=== PATIENT | female | born 1955 | race Caucasian/White ===

== ENCOUNTER → 2017-07-06 | Outpatient (CLI) | payer OTHER ==
[~2017-07-06] MED LIST: ALL100 PO; AMR2 PO; ASPI81TA28 PO; LISI-461 PO; LPT40 PO; METF-384 PO; WLLSR150 PO
== END | disposition home or self-care (01) ==
LOC: C.LABPVFM 11:14
PROVIDERS: ATTEND Nurse Practitioner Family
DX: E11.9 Type 2 diabetes mellitus without complications (principal)

== ENCOUNTER → 2017-07-21 | Outpatient (CLI) | payer OTHER ==
[2017-07-21 13:23] LABS: BLOOD UREA NITROGEN 14 mg/dl (7-18); CALCIUM 9.5 mg/dl (8.5-10.1); CARBON DIOXIDE 26 mmol/L (21-32); CHLORIDE 109 mmol/L (98-107); GLUCOSE 136 mg/dl (70-99); POTASSIUM 4.2 mmol/L (3.5-5.1); SODIUM 142 mmol/L (136-145)
== END | disposition home or self-care (01) ==
LOC: C.LABPVFM 09:26
PROVIDERS: ATTEND Nurse Practitioner Family
DX: E11.9 Type 2 diabetes mellitus without complications (principal)

== ENCOUNTER → 2017-10-20 | Outpatient (CLI) | payer OTHER ==
[2017-10-20 13:15] LABS: HEMOGLOBIN A1C 6.8 % (4.5-5.6)
== END | disposition home or self-care (01) ==
LOC: C.LABPVFM 07:55
PROVIDERS: ATTEND Nurse Practitioner Family
DX: E11.9 Type 2 diabetes mellitus without complications (principal)

== ENCOUNTER → 2018-02-09 | Outpatient (CLI) | payer OTHER ==
[2018-02-09 13:43] LABS: BLOOD UREA NITROGEN 27 mg/dl (7-18); CALCIUM 9.9 mg/dl (8.5-10.1); CARBON DIOXIDE 26 mmol/L (21-32); CREATININE 1.23 mg/dl (0.60-1.20); GLUCOSE 121 mg/dl (70-99); POTASSIUM 4.7 mmol/L (3.5-5.1); SODIUM 139 mmol/L (136-145)
[2018-02-09 13:53] LABS: HEMOGLOBIN A1C 6.5 % (4.5-5.6)
== END | disposition home or self-care (01) ==
LOC: C.LABPVFM 10:20
PROVIDERS: ATTEND Nurse Practitioner Family
DX: E11.9 Type 2 diabetes mellitus without complications (principal); I10 Essential (primary) hypertension

== ENCOUNTER 2020-07-04 16:35 | Inpatient (IN) ==
[2020-07-04] MEDS ORDERED: OPTIRAY 320 125ml IV ONE (17:22)
--- NOTE | 2020-07-04 17:22 | Emergency Department Note ---
History of Present Illness General Chief complaint: Confusion Stated complaint: CONFUSION Time Seen by Provider: 07/04/20 17:04 Source: patient and family (Daughter who is at the bed) Mode of arrival: ambulatory Limitations: no limitations History of Present Illness This patient is brought in by her daughter after she has been confused. The patient had talked to her mother yesterday and apparently was fine. She called the daughter today at 228 and was confused and did not remember stuff she called her back and did not remember calling her the first time. This is all new for her. She is had no fall or trauma. No recent illness. No headache or neck pain or stiffness. No exposure to COVID or COVID-like symptoms. No fever or ch ills or cough. She is not on any blood thinner she is had no change in vision. No numbness or weakness she has been anxious and teary-eyed because of this. She lives alone. No slurred speech at any point. She is a type II diabetic but does not have a glucometer. The daughter gave her sugar at home with no change Home Medications Home Medications Medication Instructions Recorded Confirmed Type aspirin [Aspir-81] 81 mg PO QAM 07/17/18 07/04/20 History docusate sodium [Stool Softener] 100 mg PO DIRECTED 07/17/18 07/04/20 History potassium 99 mg PO QAM 07/17/18 07/04/20 History blood sugar diagnostic #10 ea 05/17/19 12/03/19 Rx lancets 30 gauge #25 ea 05/17/19 12/03/19 Rx fluticasone propionate 50 2 sprays INTNAS DAILY PRN gm 09/18/19 07/04/20 History mcg/actuation nasal spray,suspension dulaglutide 1.5 mg/0.5 mL 1.5 mg SUBCUT WEEKLY #2 ml 03/07/20 07/04/20 Rx subcutaneous pen injector lisinopril 10 mg tablet 10 mg PO DAILY #90 tab 04/28/20 07/04/20 Rx sertraline 50 mg tablet See Rx Instructions .ROUTE 05/27/20 07/04/20 Rx .COMPLEX #90 tab Adult Fiber Gummies 0 mg PO DAILY 07/04/20 07/04/20 History Hylands 1 tab PO DAILY PRN 07/04/20 07/04/20 History allopurinol [Zyloprim] 100 mg PO BID 07/04/20 07/04/20 History atorvastatin [Lipitor] 80 mg PO DAILY 07/04/20 07/04/20 History biotin 0 mg PO DAILY 07/04/20 07/04/20 History cholecalciferol (vitamin D3) 50,000 units PO WK 07/04/20 07/04/20 History fexofenadine [Alicia] 180 mg PO DAILY PRN 07/04/20 07/04/20 History metformin [Glucophage] 1,000 mg PO BID 07/04/20 07/04/20 History omega-3 fatty acids-vitamin E 1 cap PO DAILY 07/04/20 07/04/20 History [Fish Oil] Allergies Allergy/AdvReac Type Severity Reaction Status Date / Time No Known Allergies Allergy Verified 07/04/20 18:51 Past Med/Surg History Medical History Chronic kidney disease Diabetes Non insulin dep HTN (hypertension) RIGHT Hyperlipidemia Surgical History History of section EMERGENCY History of colonoscopy History of total hip arthroplasty Status post trigger finger release THUMB Family History Other Cancer Diabetes Heart disease Hypertension Social History Smoking Status: Former smoker Cigarettes Per Day: QUIT 11 YEARS AGO; Second Hand Exposure: No; Hx Alcohol Use: Yes Alcohol type: other Hx Substance Use: No Preferred Language: Turkish Communication Ability: Effective Batch Attendant Required: No Beliefs That Will Affect Care: None marital status: / Current Living Situation: Alone current occupational status: employed Other Information That Helps Us Care for You: No Feels Safe at Home: Yes Safety Concerns: Feels Safe At This Time Assistive Devices: Glasses Review of Systems A total of 10 systems reviewed and were otherwise negative Physical Exam Vital Signs Vital Signs - 24 hr 07/04/20 16:54 07/04/20 17:43 07/04/20 17:48 Temperature 36.7 C Temperature Source Oral Pulse Rate 69 63 64 Pulse Rate from SpO2 Sensor 62 Pulse Rhythm Regular Pulse Strength Normal Respiratory Rate 20 24 16 Respiratory Effort / Characteristics Non-Labored Spontaneous Respiratory Depth Normal Respiratory Pattern Regular Blood Pressure 164/88 H 148/76 H 140/75 Blood Pressure Mean 113 80 91 Blood Pressure Position Sitting Pulse Oximetry 97 98 Oxygen Delivery Method Room Air Room Air Sepsis Recent Fever Within 48 Hours No Sepsis New/Unexplained Change in Mental Status No Sepsis Action Taken by Nursing No Action Required 07/04/20 18:00 07/04/20 18:30 07/04/20 19:00 Temperature Temperature Source Pulse Rate 64 61 53 L Pulse Rate from SpO2 Sensor Pulse Rhythm Pulse Strength Respiratory Rate 25 H 21 16 Respiratory Effort / Characteristics Respiratory Depth Respiratory Pattern Blood Pressure 146/84 H 145/82 H 139/70 Blood Pressure Mean 91 106 94 Blood Pressure Position Pulse Oximetry Oxygen Delivery Method Sepsis Recent Fever Within 48 Hours Sepsis New/Unexplained Change in Mental Status Sepsis Action Taken by Nursing 07/04/20 19:30 07/04/20 20:01 07/04/20 21:00 Temperature Temperature Source Pulse Rate 59 L 55 L 56 L Pulse Rate from SpO2 Sensor 55 L 57 L Pulse Rhythm Pulse Strength Respiratory Rate 21 22 14 Respiratory Effort / Characteristics Respiratory Depth Respiratory Pattern Blood Pressure 140/81 148/73 H 135/68 Blood Pressure Mean 117 99 79 Blood Pressure Position Pulse Oximetry 96 97 93 Oxygen Delivery Method Room Air Room Air Room Air Sepsis Recent Fever Within 48 Hours Sepsis New/Unexplained Change in Mental Status Sepsis Action Taken by Nursing 07/04/20 21:30 Temperature Temperature Source Pulse Rate 60 Pulse Rate from SpO2 Sensor 58 L Pulse Rhythm Pulse Strength Respiratory Rate 23 Respiratory Effort / Characteristics Respiratory Depth Respiratory Pattern Blood Pressure 130/51 L Blood Pressure Mean 85 Blood Pressure Position Pulse Oximetry 96 Oxygen Delivery Method Room Air Sepsis Recent Fever Within 48 Hours Sepsis New/Unexplained Change in Mental Status Sepsis Action Taken by Nursing General: Well developed well nourished teary-eyed older female who otherwise in no acute distress, breathing comfortably on room air. Normal speech. She is krissy rt to person and place but not date. HEENT: Normal cephalic atraumatic. Pupils are equal round and reactive to light. Extraocular movements are intact. Oropharynx is pink with moist mucous membranes. No swelling of the mouth lips or tongue. Neck: Supple with a midline trachea. No meningeal signs or stiffness, no JVD or bruits. No Stridor. Chest: Clear to auscultation bilaterally. No wheezes or rhonchi. No increased work of breathing. Heart: Regular rate and rhythm without murmurs or gallops. Abdomen: Soft nontender, nondistended without rebound guarding or rigidity. Extremities: No cyanosis clubbing or edema. No calf tenderness or assymetry Spine/Back. Non tender to palpation. No CVA tenderness Skin: Good turgor without rashes. Neurologic exam: Cranial nerves two through 12 are intact. Motor and sensation are intact and symmetrical throughout. No tremor. No pronator drift. Course Administered Medications Docusate Sodium (Docusate Sodium 100 Mg Cap) 100 mg PO DAILY RADHA Stop: 08/03/20 22:41 Last Admin: 07/04/20 23:04 Dose: 100 mg Documented by: [id number] Sodium Chloride (2 Nss) 1,000 mls @ 80 mls/hr IV .[id number] ONE Stop: 07/05/20 11:11 Last Admin: 07/04/20 22:53 Dose: 80 mls/hr Documented by: [id number] Magnesium Sulfate/Dextrose (Magnesium Sulfate / D5w) 1 gm in 100 mls @ 50 mls/hr IV Q2H RADHA Stop: 07/05/20 02:59 Last Admin: 07/05/20 00:52 Dose: 50 mls/hr Documented by: [id number] Infusion: 07/05/20 00:52 Dose: 50 mls/hr Documented by: [id number] Admin: 07/04/20 23:01 Dose: 50 mls/hr Documented by: [id number] Insulin Aspart (Insulin Aspart 100 Units/Ml 3 Ml Pen) 0 units SC ACHS RADHA Stop: 08/03/20 22:41 Last Admin: 07/04/20 23:28 Dose: Not Given Documented by: [id number] Cosigned by: [id number] Discontinued Medications Aspirin (Aspirin 81 Mg Chew) 324 mg PO NOW STA Stop: 07/04/20 18:21 Last Admin: 07/04/20 18:31 Dose: 324 mg Documented by: [id number] Magnesium Sulfate/Dextrose (Magnesium Sulfate / D5w) 1 gm in 100 mls @ 100 mls/hr IV NOW STA Stop: 07/04/20 19:18 Last Infusion: 07/04/20 19:34 Dose: 0 mls/hr Documented by: [id number] Admin: 07/04/20 18:31 Dose: 100 mls/hr Documented by: [id number] Sodium Chloride (1/2 Nss) 1,000 mls @ 500 mls/hr IV .Q2H ONE Stop: 07/04/20 21:49 Last Infusion: 07/04/20 22:43 Dose: 0 mls/hr Documented by: [id number] Admin: 07/04/20 21:17 Dose: 500 mls/hr Documented by: [id number] Ceftriaxone Sodium (Rocephin) 1,000 mg in 50 mls @ 100 mls/hr IV NOW STA Stop: 07/04/20 20:39 Last Infusion: 07/04/20 21:17 Dose: 0 mls/hr Documented by: [id number] Admin: 07/04/20 20:36 Dose: 100 mls/hr Documented by: [id number] Ioversol (Optiray 320 125ml) 119 ml IV ONCE ONE Stop: 07/04/20 17:23 Last Admin: 07/04/20 17:22 Dose: 119 ml Documented by: [id number] Ketorolac Tromethamine (Ketorolac Tromethamine 15 Mg/Ml Vial) 15 mg IV NOW ONE Stop: 07/04/20 19:28 Last Admin: 07/04/20 19:31 Dose: 15 mg Documented by: [id number] Ketorolac Tromethamine (Ketorolac Tromethamine 15 Mg/Ml Vial) 15 mg IV NOW ONE Stop: 07/04/20 20:11 Last Admin: 07/04/20 22:32 Dose: Not Given Documented by: [id number] Critical Care Time Critical Care Time: Yes Total Critical Care Time: 35 Due to the patient's altered mental status, need to call a stroke alert concern for time-limited treatment potentially frequent reassessment and evaluation as well as multiple testing and consultation, I have personally spent greater than 35 minutes of critical care time in the direct management of this patient. This includes bedside care, interpretation of diagnostic studies, and testing, discussion with consultants, patient, and family members, and other required patient management activities. This 35 minutes is in excess of all separately billable procedures. Medical Decision Making Differential Diagnosis TIA, CVA, intracranial hemorrhage, electrolyte or metabolic abnormality, transient global amnesia, infection, cardiac disease, medication side effect Medical Records Attestation: I reviewed the patient's medical records. Home Medications Current Medication List: was personally reviewed by ga Laboratory Data Attestation: I reviewed the patient's lab results. Result diagrams: 07/05/20 00:22 07/04/20 17:27 Lab Results 07/04/20 07/04/20 07/04/20 Range/Units 17:22 17: 17:27 WBC 8.32 (4.8-10.8) K/uL RBC 4.01 L (4.2-5.4) M/uL Hgb 11.9 L (12.0-16.0) g/dL Hct 35.6 L (37-47) % MCV 88.8 (80-100) fL MCH 29.7 (25-34) pg MCHC 33.4 (32-36) g/dL RDW Std Deviation 47.1 H (36.4-46.3) fL RDW Coeff of Pamela 14.4 (11.5-14.5) % Plt Count 241 (130-400) K/uL MPV 9.2 (7.4-10.4) fL Immature Gran % (Auto) 0.2 % Neut % (Auto) 52.9 % Lymph % (Auto) 38.2 % Towns % (Auto) 5.8 % Eos % (Auto) 2.5 % Baso % (Auto) 0.4 % Neut # (Auto) 4.40 (1.4-6.5) K/uL Lymph # (Auto) 3.18 (1.2-3.4) K/uL Towns # (Auto) 0.48 (0.11-0.59) K/uL Eos # (Auto) 0.21 (0-0.5) K/uL Baso # (Auto) 0.03 (0-0.2) K/uL Immature Gran # (Auto) 0.02 (0.00-0.02) K/uL PT 11.0 (9.0-12.0) Seconds INR 1.0 (0.9-1.1) APTT 28.8 (21.0-31.0) Seconds PTT Ratio 1.0 Sodium (136-145) mmol/L Potassium (3.5-5.1) mmol/L Chloride (98-107) mmol/L Carbon Dioxide (21-32) mmol/L Anion Gap (3-11) BUN (7-18) mg/dl Creatinine (0.6-1.2) mg/dl Est Cr Clr Drug Dosing ml/min Est GFR ( Amer) Est GFR (Non-Af Amer) BUN/Creatinine Ratio (10-20) Glucose (70-99) mg/dl POC Glucose 110 H (70-99) mg/dl Calcium (8.5-10.1) mg/dl Magnesium (1.8-2.4) mg/dl Total Bilirubin (0.2-1) mg/dl AST (15-37) U/L ALT (12-78) U/L Alkaline Phosphatase (45-117) U/L Troponin I (0-0.045) ng/ml Total Protein (6.4-8.2) gm/dl Albumin (3.4-5.0) gm/dl Globulin (2.5-4.0) gm/dl Albumin/Globulin Ratio (0.9-2) Lipase (73-393) U/L TSH (0.300-4.500) uIu/ml Urine Color Urine Appearance (Clear) Urine pH (4.5-7.5) Ur Specific [place] (1.000-1.030) Urine Protein (Negative) Urine Glucose (UA) (Negative) Urine Ketones (Negative) Urine Blood (Negative) Urine Nitrite (Negative) Urine Bilirubin (Negative) Urine Urobilinogen (Negative) Ur Leukocyte Esterase (Negative) Urine WBC (Auto) (0-5) /hpf Urine RBC (Auto) (0-4) /hpf U Hyaline Cast (Auto) (0-5) /lpf U Epithel Cells (Auto) (0-5) /lpf Urine Bacteria (Auto) (Negative) COVID-19 Eval Order COVID-19 PCR (Negative) 07/04/20 07/04/20 07/04/20 Range/Units 17:27 17:50 20:42 WBC (4.8-10.8) K/uL RBC (4.2-5.4) M/uL Hgb (12.0-16.0) g/dL Hct (37-47) % MCV (80-100) fL MCH (25-34) pg MCHC (32-36) g/dL RDW Std Deviation (36.4-46.3) fL RDW Coeff of Pamela (11.5-14.5) % Plt Count (130-400) K/uL MPV (7.4-10.4) fL Immature Gran % (Auto) % Neut % (Auto) % Lymph % (Auto) % Towns % (Auto) % Eos % (Auto) % Baso % (Auto) % Neut # (Auto) (1.4-6.5) K/uL Lymph # (Auto) (1.2-3.4) K/uL Towns # (Auto) (0.11-0.59) K/uL Eos # (Auto) (0-0.5) K/uL Baso # (Auto) (0-0.2) K/uL Immature Gran # (Auto) (0.00-0.02) K/uL PT (9.0-12.0) Seconds INR (0.9-1.1) APTT (21.0-31.0) Seconds PTT Ratio Sodium 144 (136-145) mmol/L Potassium 4.1 (3.5-5.1) mmol/L Chloride 113 H (98-107) mmol/L Carbon Dioxide 23 (21-32) mmol/L Anion Gap 8.0 (3-11) BUN 15 (7-18) mg/dl Creatinine 1.12 (0.6-1.2) mg/dl Est Cr Clr Drug Dosing 55.4 ml/min Est GFR ( Amer) 61.0 Est GFR (Non-Af Amer) 52.6 BUN/Creatinine Ratio 13.3 (10-20) Glucose 100 H (70-99) mg/dl POC Glucose (70-99) mg/dl Calcium 9.5 (8.5-10.1) mg/dl Magnesium 1.3 L (1.8-2.4) mg/dl Total Bilirubin 0.4 (0.2-1) mg/dl AST 28 (15-37) U/L ALT 33 (12-78) U/L Alkaline Phosphatase 96 (45-117) U/L Troponin I < 0.015 (0-0.045) ng/ml Total Protein 7.8 (6.4-8.2) gm/dl Albumin 3.7 (3.4-5.0) gm/dl Globulin 4.1 H (2.5-4.0) gm/dl Albumin/Globulin Ratio 0.9 (0.9-2) Lipase 295 (73-393) U/L TSH 2.230 (0.300-4.500) uIu/ml Urine Color Yellow Urine Appearance Clear (Clear) Urine pH 5.0 (4.5-7.5) Ur Specific [place] 1.026 (1.000-1.030) Urine Protein Negative (Negative) Urine Glucose (UA) Negative (Negative) Urine Ketones Trace H (Negative) Urine Blood Negative (Negative) Urine Nitrite Negative (Negative) Urine Bilirubin Negative (Negative) Urine Urobilinogen Negative (Negative) Ur Leukocyte Esterase Trace H (Negative) Urine WBC (Auto) 1-5 (0-5) /hpf Urine RBC (Auto) 0-4 (0-4) /hpf U Hyaline Cast (Auto) 1-5 (0-5) /lpf U Epithel Cells (Auto) 10-20 H (0-5) /lpf Urine Bacteria (Auto) Negative (Negative) COVID-19 Eval Order Covid19 Done at [facility] COVID-19 PCR (Negative) 07/04/20 Range/Units 20:42 WBC (4.8-10.8) K/uL RBC (4.2-5.4) M/uL Hgb (12.0-16.0) g/dL Hct (37-47) % MCV (80-100) fL MCH (25-34) pg MCHC (32-36) g/dL RDW Std Deviation (36.4-46.3) fL RDW Coeff of Pamela (11.5-14.5) % Plt Count (130-400) K/uL MPV (7.4-10.4) fL Immature Gran % (Auto) % Neut % (Auto) % Lymph % (Auto) % Towns % (Auto) % Eos % (Auto) % Baso % (Auto) % Neut # (Auto) (1.4-6.5) K/uL Lymph # (Auto) (1.2-3.4) K/uL Towns # (Auto) (0.11-0.59) K/uL Eos # (Auto) (0-0.5) K/uL Baso # (Auto) (0-0.2) K/uL Immature Gran # (Auto) (0.00-0.02) K/uL PT (9.0-12.0) Seconds INR (0.9-1.1) APTT (21.0-31.0) Seconds PTT Ratio Sodium (136-145) mmol/L Potassium (3.5-5.1) mmol/L Chloride (98-107) mmol/L Carbon Dioxide (21-32) mmol/L Anion Gap (3-11) BUN (7-18) mg/dl Creatinine (0.6-1.2) mg/dl Est Cr Clr Drug Dosing ml/min Est GFR ( Amer) Est GFR (Non-Af Amer) BUN/Creatinine Ratio (10-20) Glucose (70-99) mg/dl POC Glucose (70-99) mg/dl Calcium (8.5-10.1) mg/dl Magnesium (1.8-2.4) mg/dl Total Bilirubin (0.2-1) mg/dl AST (15-37) U/L ALT (12-78) U/L Alkaline Phosphatase (45-117) U/L Troponin I (0-0.045) ng/ml Total Protein (6.4-8.2) gm/dl Albumin (3.4-5.0) gm/dl Globulin (2.5-4.0) gm/dl Albumin/Globulin Ratio (0.9-2) Lipase (73-393) U/L TSH (0.300-4.500) uIu/ml Urine Color Urine Appearance (Clear) Urine pH (4.5-7.5) Ur Specific [place] (1.000-1.030) Urine Protein (Negative) Urine Glucose (UA) (Negative) Urine Ketones (Negative) Urine Blood (Negative) Urine Nitrite (Negative) Urine Bilirubin (Negative) Urine Urobilinogen (Negative) Ur Leukocyte Esterase (Negative) Urine WBC (Auto) (0-5) /hpf Urine RBC (Auto) (0-4) /hpf U Hyaline Cast (Auto) (0-5) /lpf U Epithel Cells (Auto) (0-5) /lpf Urine Bacteria (Auto) (Negative) COVID-19 Eval Order COVID-19 PCR NEGATIVE (Negative) Imaging Data Attestation: I personally reviewed and interpreted this imaging study as casper mckeon: Radiologist's Impression: CT head/brain wo con CLINICAL HISTORY: 64 years-old Female with Stroke evaluation . Acute strokelike symptoms with altered mental status TECHNIQUE: Multiple axial CT images of the head were obtained without contrast. A dose lowering technique was utilized adhering to the principles of ALARA. COMPARISON: CTA head and neck of same day, head CT 05/28/2019 FINDINGS: No acute intracranial hemorrhage, midline shift, intracranial mass, hydrocephalus, territorial ischemia or abnormal extra-axial collection. The calvarium is intact. The paranasal sinuses, mastoid air cells, and middle ear cavities are clear. IMPRESSION: No acute intracranial abnormality. CT angio neck with con, CT angio head w con CLINICAL HISTORY: 64 years-old Female with Stroke evaluation. Acute strokelike symptoms COMPARISON STUDY: Head CT of same day TECHNIQUE: Following the IV administration of 119 mL of Optiray 320, CT angiogram of the and neck was performed from the aortic arch to the skull base. Images are reviewed in the axial, sagittal, and coronal planes. 3-D MIPS images are created and assessed. IV contrast was administered without complication. All measurements were calculated based on NASCET criteria. A dose lowering t echnique was utilized adhering to the principles of ALARA. CT DOSE: 1060.09 mGy.cm FINDINGS: The imaged opacified pulmonary arterial tree is unremarkable. Three-vessel morphology of the thoracic aortic arch with patency of the innominate and imaged subclavian arteries. Bilateral common carotid arteries are widely patent. Tortuosity of the proximal cervical segments of the internal carotid arteries. Mild calcified plaque of the cavernous and supraclinoid segments without high- grade stenosis or occlusion. The bilateral middle and anterior cerebral arteries are patent and unremarkable. Codominant vertebral arteries are patent and unremarkable. Diminutive and patent basilar artery with origin of the posterior cerebral arteries. The bilateral posterior cerebral arteries are widely patent. Cerebral venous sinuses are patent and unremarkable. No abnormal intracranial enhancement. No pneumothorax. Soft tissues are unremarkable. Bones appear intact. ABDOMEN AND PELVIS CT WITHOUT CONTRAST CT DOSE: 957.49 mGy.cm HISTORY: Acute right mid abdominal pain with confusion rt abd pain TECHNIQUE: Multiaxial CT images of the abdomen and pelvis were performed without contrast. A dose lowering technique was utilized adhering to the principles of ALARA. COMPARISON STUDY: Renal ultrasound 07/18/2018 FINDINGS: Clear lung bases. No pneumatosis or pneumoperitoneum. Mitral annular calcifications. Imaged inferior cardiac chambers are unremarkable. The spleen, pancreas and adrenal glands are unremarkable. Mildly contracted gallbladder. Unremarkable liver. Delayed phase of contrast imaging demonstrates no filling defects within the renal collecting systems or ureters. There is no hy dronephrosis or hydroureter. Unremarkable urinary bladder. Hysterectomy. Calcified plaque of the abdominal aorta without aneurysm. No adenopathy. No bowel obstruction or bowel wall thickening. Mild fecal retention. Noninflamed appendix. Scattered small bowel air-fluid levels, likely physiologic. Soft tissues are unremarkable. Degenerative changes of the spine, pelvis and left hip. Right hip total joint arthroplasty. IMPRESSION: 1. No acute intra-abdominal or intrapelvic abnormality. 2. No bowel obstruction or bowel wall thickening. Normal appendix. 3. Additional findings as above. ECG Data Attestation: I personally reviewed and interpreted this ECG as follows: Indication: + altered mental status Rate (beats per minute): 56 Rhythm: + sinus bradycardia ECG Intervals/blocks: + Normal QRS, + Normal QT and + Normal AL ECG [place]: + Normal ECG ST segments: + Normal ST segments ECG Findings: + Other (Low voltages); no PACs and no PVCs Comparison ECG Date: from (03/15/18) Blood Pressure Blood Pressure Findings: Elevated blood pressure Blood Pressure Disposition: elevated BP felt to be situational MDM Narrative This patient comes in as described above. She was placed in room B6. After I talked to the patient and her family I was concerned that this may be a central neurologic process either TIA/CVA/transient global amnesia. She apparently is fine until yesterday. Daughter talked to her about 3 hours ago when she was confused the last known well is not known prior to that. I did call a stroke alert to expedite her care. She was placed on a monitoring specialist. Her blood sugar here was 110, therefore not the culprit. I did call a stroke alert and talk with Dr. Sullivan from [place]. She agreed with the plan. The patient is not a TPA candidate at this point given the unknown last well-known which was some time between yesterday and 2:00 today. Additionally her symptoms are mild and just related to amnesia. It is also unlikely she will have a significant vascular issue which would necessitate acute vascular/neurologic intervention but she was sent over the CAT scan with a CT of the head and neck and if something shows on that this will be reassessed. She has no white count or fever to suggest infection and clinically I do not suspect meningitis or encephalitis. She has no neck stiffness. She is mildly anemic at 11.9. Her magnesium is low at 1.3. She was repleted with magnesium 1 g IV. She has no other electrolyte or metabolic abnormalities. Her UA UA does not suggest a UTI. Troponin was negative EKG does not suggest ischemic changes. CTA shows no vascular abnormality in the head or neck. The patient is less confused than she was but still has some confusion I think is most likely transient global amnesia at this point but do think she needs to be admitted/observe for further treatment and evaluation. He was given aspirin 324 mg chewable in the emergency department. She does seem to be anxious which may be playing a role here as well although she seems anxious about her memory issues. While I was waiting for the internal medicine team to see her, she developed abdominal cramping on the right side. This was well after she had received the CAT scan dye antigen I think was allergic reaction she had no shortness of breath or hives or any other symptoms to suggest allergic reaction. She had just received magnesium IV however had the symptoms before the magnesium as well. She did receive Toradol 15 mg IV and I also did a CAT scan of her abdomen which showed no acute abnormalities. I did consult Dr. Romero who saw her in the ER will admit her for further treatment and evaluation. Continuous cardiac monitoring: An order was placed in the EMR for continuous cardiac monitoring. The patient was noted to be in normal sinus rhythm with a rate of 70 Impression & Plan Altered mental status, Diabetes, Hypomagnesemia, Transient global amnesia, Anxiety, Abdominal pain Discharge Plan Visit Data Chief Complaint: Confusion Stated Complaint: CONFUSION ED Provider: Jayy Fisher Discharge Problem: Altered mental status, Diabetes, Hypomagnesemia, Transient global amnesia, Anxiety, Abdominal pain Patient Disposition: Admitted As Inpatient Discharge Instructions Interventions: ED Discharge Assessment Last Done: 07/04/20 22:53 Discharge Problem: Altered mental status Qualifiers: Altered mental status type: unspecified Qualified Code(s): R41.82 - Altered mental status, unspecified Diabetes Qualifiers: Diabetes mellitus type: type 2 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
[2020-07-04 17:39] LABS: Basophils # (auto) 0.03 K/uL (0-0.2); Basophils % (auto) 0.4 %; Eosinophils # (auto) 0.21 K/uL (0-0.5); Eosinophils % (auto) 2.5 %; Hematocrit (blood only) 35.6 % (37-47); Hemoglobin 11.9 g/dL (12.0-16.0); Immature Granulocytes # (auto) 0.02 K/uL (0.00-0.02); Immature Granulocytes % (auto) 0.2 %; Lymphocytes # (auto) 3.18 K/uL (1.2-3.4); Lymphocytes % (auto) 38.2 %; Mean Corpuscular Hemoglobin 29.7 pg (25-34); Mean Corpuscular Hgb Conc 33.4 g/dL (32-36); Mean Corpuscular Volume 88.8 fL (80-100); Mean Platelet Volume 9.2 fL (7.4-10.4); Monocytes # (auto) 0.48 K/uL (0.11-0.59); Monocytes % (auto) 5.8 %; Neutrophils % (auto) 52.9 %; Platelet Count 241 K/uL (130-400); RDW Coefficient of Variation 14.4 % (11.5-14.5); RDW Standard Deviation 47.1 fL (36.4-46.3); Red Blood Count 4.01 M/uL (4.2-5.4); White Blood Count 8.32 K/uL (4.8-10.8)
--- NOTE | 2020-07-04 17:44 | CT Scan Report ---
CT head/brain wo con CLINICAL HISTORY: 64 years-old Female with Stroke evaluation . Acute strokelike symptoms with altere d mental status TECHNIQUE: Multiple axial CT images of the head were obtained without contrast. A dose lowering tech nique was utilized adhering to the principles of ALARA. COMPARISON: CTA head and neck of same day, head CT 05/28/2019 FINDINGS: No acute intracranial hemorrhage, midline shift, intracranial mass, hydrocephalus, territorial ischem ia or abnormal extra-axial collection. The calvarium is intact. The paranasal sinuses, mastoid air cells, and middle ear cavities are clear . IMPRESSION: No acute intracranial abnormality. ACT 112: Negative or not required by law. The above report was generated using voice recognition software. It may contain grammatical, syntax o r spelling errors. Electronically signed by: Duncan De Dios M.D. 07/04/2020 5:43 PM
[2020-07-04 17:53] LABS: Partial Thromboplastin Time 28.8 Seconds (21.0-31.0)
[2020-07-04 17:58] LABS: Appearance Urine Clear (Clear); Bacteria Urine Automated Negative (Negative); Bilirubin Urine Negative (Negative); Blood Urine Negative (Negative); Color Urine Yellow; Glucose Urine UA Negative (Negative); Ketones Urine Trace (Negative); Leukocyte Esterase Urine Trace (Negative); Nitrite Urine Negative (Negative); Protein Urine Negative (Negative); RBC Urine Automated 0-4 /hpf (0-4); Specific Gravity Urine 1.026 (1.000-1.030); Urobilinogen Urine Negative (Negative)
[2020-07-04 18:01] LABS: Alanine Aminotransferase 33 U/L (12-78); Albumin Level 3.7 gm/dl (3.4-5.0); Aspartate Aminotransferase 28 U/L (15-37); BUN Creatinine Ratio 13.3 (10-20); Blood Urea Nitrogen 15 mg/dl (7-18); Calcium 9.5 mg/dl (8.5-10.1); Carbon Dioxide 23 mmol/L (21-32); Chloride 113 mmol/L (98-107); Creatinine Clr Calc Pharmacy 55.4 ml/min; Est GFR (Non-African American) 52.6; Glucose 100 mg/dl (70-99); Magnesium 1.3 mg/dl (1.8-2.4); Potassium 4.1 mmol/L (3.5-5.1); Sodium 144 mmol/L (136-145)
[2020-07-04 18:06] LABS: Albumin Globulin Ratio 0.9 (0.9-2); Alkaline Phosphatase 96 U/L (45-117); Bilirubin,Total 0.4 mg/dl (0.2-1); Globulin 4.1 gm/dl (2.5-4.0); Total Protein 7.8 gm/dl (6.4-8.2); Troponin I < 0.015 ng/ml (0-0.045)
--- NOTE | 2020-07-04 18:14 | CT Scan Report ---
CT angio neck with con, CT angio head w con CLINICAL HISTORY: 64 years-old Female with Stroke evaluation. Acute strokelike symptoms COMPARISON STUDY: Head CT of same day TECHNIQUE: Following the IV administration of 119 mL of Optiray 320, CT angiogram of the and neck was performed from the aortic arch to the skull base. Images are reviewed in the axial, sagittal, and co sony planes. 3-D MIPS images are created and assessed. IV contrast was administered without complica tion. All measurements were calculated based on NASCET criteria. A dose lowering technique was utili zed adhering to the principles of ALARA. CT DOSE: 1060.09 mGy.cm FINDINGS: The imaged opacified pulmonary arterial tree is unremarkable. Three-vessel morphology of the thoracic aortic arch with patency of the innominate and imaged subclavian arteries. Bilateral common carotid arteries are widely patent. Tortuosity of the proximal cervical segments of the internal carotid addis fanny. Mild calcified plaque of the cavernous and supraclinoid segments without high-grade stenosis or occlusion. The bilateral middle and anterior cerebral arteries are patent and unremarkable. Codomina nt vertebral arteries are patent and unremarkable. Diminutive and patent basilar artery with or igin of the posterior cerebral arteries. The bilateral posterior cerebral arteries are widely patent. Cerebral venous sinuses are patent and unremarkable. No abnormal intracranial enhancement. No pneumothorax. Soft tissues are unremarkable. Bones appear intact. IMPRESSION:Unremarkable CTA of the head and neck. ACT 112: Negative or not required by law. The above report was generated using voice recognition software. It may contain grammatical, syntax o r spelling errors. Electronically signed by: Duncan De Dios M.D. 07/04/2020 6:12 PM
[2020-07-04] MEDS ORDERED: MAGNESIUM SULFATE / D5W 1 GM/100 ML BAG IV STA (18:19)
[2020-07-04] MEDS ORDERED: ASPIRIN 81 MG CHEW PO STA (18:20)
[2020-07-04] MEDS ORDERED: KETOROLAC TROMETHAMINE 15 MG/ML VIAL IV ONE ×2 (19:27→20:10)
[2020-07-04] MEDS ORDERED: SODIUM CHLORIDE 0.45 % 1,000 ML IV ONE ×2 (19:50→22:42)
--- NOTE | 2020-07-04 19:50 | CT Scan Report ---
ABDOMEN AND PELVIS CT WITHOUT CONTRAST CT DOSE: 957.49 mGy.cm HISTORY: Acute right mid abdominal pain with confusion rt abd pain TECHNIQUE: Multiaxial CT images of the abdomen and pelvis were performed without contrast. A dose lo wering technique was utilized adhering to the principles of ALARA. COMPARISON STUDY: Renal ultrasound 07/18/2018 FINDINGS: Clear lung bases. No pneumatosis or pneumoperitoneum. Mitral annular calcifications. Imaged inferior cardiac chambers are unremarkable. The spleen, pancreas and adrenal glands are unremarkable . Mildly contracted gallbladder. Unremarkable liver. Delayed phase of contrast imaging demonstrates n o filling defects within the renal collecting systems or ureters. There is no hydronephrosis or hydro ureter. Unremarkable urinary bladder. Hysterectomy. Calcified plaque of the abdominal aorta without a neurysm. No adenopathy. No bowel obstruction or bowel wall thickening. Mild fecal retention. Noninflamed appendix. Scattered small bowel air-fluid levels, likely physiologic. Soft tissues are unremarkable. Degenerative changes of the spine, pelvis and left hip. Right hip tota l joint arthroplasty. IMPRESSION: 1. No acute intra-abdominal or intrapelvic abnormality. 2. No bowel obstruction or bowel wall thickening. Normal appendix. 3. Additional findings as above. ACT 112: Negative or not required by law. The above report was generated using voice recognition software. It may contain grammatical, syntax o r spelling errors. Electronically signed by: Duncan De Dios M.D. 07/04/2020 7:48 PM
[2020-07-04] MEDS ORDERED: cefTRIAXone SODIUM 1,000 MG/50 ML BAG IV STA (20:10)
[2020-07-04 20:26] LABS: Lipase 295 U/L (73-393)
--- NOTE | 2020-07-04 20:28 | History & Physical Report ---
Date of Service July 04, 2020 Assessment & Plan (1) Altered mental status: Multifactorial : Mild clinical dehydration as evidenced by ketonuria secondary to possible viral infection ? Complicated UTI (UA somewhat bland, no sepsis) Right lower quadrant pain possibly secondary to UTI, enteritis (No appendicitis on noncontrast CT read. No benefit in doing contrast study to definitely rule out appendicitis for now as per conversation with radiologist.) New onset anemia, patient gives history of intermittent bleeding from possible anal fissure few weeks ago. hypertension, stable hyperlipidemia on statin Rx DM 2 on oral medications, well-controlled as of recent outpatient hemoglobin A1c of 6.10 April 2020 hypothyroidism, euthyroid as of today's TSH essential tremor as per records, treatment not recommended by neurology until interfering with activities of daily living as per recent outpatient documentation. past tobacco abuse OBS Medical telemetry IVF Follow urine cultures, IV Ceftriaxone CT abdomen pelvis with contrast to rule out appendicitis if still with persistent RLQ pain. Anemia work-up, transfuse PRBC if hemoglobin less than 7 and or for symptomatic anemia ISS BG goal [id number] PT OT eval DVT prophylaxis. SCDS re possible L GIB Full code Patient's daughter requesting updates from providers. Ms. Bijal Maxwell, contact #[phone]. Text document was generated using [employer] voice recognition software. It may contain grammatical or spelling errors. Kindly contact undersigned for clarification of any documentation item in question. History of Present Illness Chief Complaint: Confusion as per records Primary Care Provider: Daniel Frankel MD History obtained from patient, family, and records. Patient is a fair historian. Medical history significant for hypertension, hyperlipidemia, DM 2 on oral medications, hypothyroidism, mood disorder, essential tremor as per records, past tobacco abuse. Last confinement November 2009 under Orthopedics service for elective right hip surgery. Patient called her daughter this afternoon sounding very anxious. Family checked on patient at home and noted her to be confused and forgetful. Could not remember that she called daughter earlier. Denies headache, chest pain, shortness of breath, cough symptoms. No slurred speech or extremity weakness as per patient/family account. Runny nose for about 2 days. Appetite not too good the last few days as per daughter. Patient has been worried about possible COVID-19 contact as per daughter. At the ER, patient had sudden onset of achy right lower quadrant pain without other accompanying symptoms. No change in bowel habits as per patient. No fever, no chills. Patient denies actual dysuria. Stroke alert called upon arrival at the ER. TPA not recommended by [facility] stroke specialist given patient circumstances. Medical History as above May 2020 - traumatic left elbow radial head fracture status post nonoperative management. 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 Allergies Allergy/AdvReac Type Severity Reaction Status Date / Time No Known Allergies Allergy Verified 07/04/20 18:51 Home Medications Home Medications Medication Instructions Recorded Confirmed Type aspirin [Aspir-81] 81 mg PO QAM 07/17/18 07/04/20 History docusate sodium [Stool Softener] 100 mg PO DIRECTED 07/17/18 07/04/20 History potassium 99 mg PO QAM 07/17/18 07/04/20 History blood sugar diagnostic #10 ea 05/17/19 12/03/19 Rx lancets 30 gauge #25 ea 05/17/19 12/03/19 Rx fluticasone propionate 50 2 sprays INTNAS DAILY PRN gm 09/18/19 07/04/20 History mcg/actuation nasal spray,suspension dulaglutide 1.5 mg/0.5 mL 1.5 mg SUBCUT WEEKLY #2 ml 03/07/20 07/04/20 Rx subcutaneous pen injector lisinopril 10 mg tablet 10 mg PO DAILY #90 tab 04/28/20 07/04/20 Rx sertraline 50 mg tablet See Rx Instructions .ROUTE 05/27/20 07/04/20 Rx .COMPLEX #90 tab Adult Fiber Gummies 0 mg PO DAILY 07/04/20 07/04/20 History Hylands 1 tab PO DAILY PRN 07/04/20 07/04/20 History allopurinol [Zyloprim] 100 mg PO BID 07/04/20 07/04/20 History atorvastatin [Lipitor] 80 mg PO DAILY 07/04/20 07/04/20 History biotin 0 mg PO DAILY 07/04/20 07/04/20 History cholecalciferol (vitamin D3) 50,000 units PO WK 07/04/20 07/04/20 History fexofenadine [Alicia] 180 mg PO DAILY PRN 07/04/20 07/04/20 History metformin [Glucophage] 1,000 mg PO BID 07/04/20 07/04/20 History omega-3 fatty acids-vitamin E 1 cap PO DAILY 07/04/20 07/04/20 History [Fish Oil] Past Med/Surg History Medical History Chronic kidney disease Diabetes Non insulin dep HTN (hypertension) RIGHT Hyperlipidemia Surgical History History of section EMERGENCY History of colonoscopy History of total hip arthroplasty Status post trigger finger release THUMB Family History Other Cancer Diabetes Heart disease Hypertension Social History Smoking Status: Former smoker Cigarettes Per Day: QUIT 11 YEARS AGO; Second Hand Exposure: No; Hx Alcohol Use: Yes Alcohol type: other Hx Substance Use: No Preferred Language: Cuban Communication Ability: Effective 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 Beliefs That Will Affect Care: None marital status: / Current Living Situation: Alone current occupational status: employed Other Information That Helps Us Care for You: No Feels Safe at Home: Yes Safety Concerns: Feels Safe At This Time Assistive Devices: Glasses Review of Systems Review of Systems: As per HPI, all 10 systems reviewed, all other ROS negative Physical Exam Physical Exam: GENERAL: uncomfortable, obese, no respiratory distress, anxious, oriented to month SKIN: Normal color, warm HEENT: [place] palpebral conjunctivae, no ptosis, dry buccal mucosa NECK : Supple, short neck, no tenderness CHEST : CTA, no tenderness HEART : Bradycardic, no obvious murmurs ABDOMEN: Some distention, minimal RLQ tenderness EXTREMITIES : No LE swelling/tenderness, no other conspicuous deformities noted NEUROLOGIC : Coherent, oriented to month, no facial asymmetry, no other gross focality Results & Data Results & Data ([facility]) Vital Signs (Past 12 Hours) Vital Signs Temp Pulse Resp BP Pulse Ox 07/04/20 19:00 53 L 16 139/70 07/04/20 18:30 61 21 145/82 H 07/04/20 18:00 64 25 H 146/84 H 07/04/20 17:48 64 16 140/75 07/04/20 17:43 63 24 148/76 H 98 07/04/20 16:54 36.7 C 69 20 164/88 H 97 Laboratory Results Laboratory Results WBC 8.32 K/uL (4.8-10.8) 07/04/20 17: RBC 4.01 M/uL (4.2-5.4) L 07/04/20 17:27 Hgb 11.9 g/dL (12.0-16.0) L 07/04/20 17:27 Hct 35.6 % (37-47) L 07/04/20 17: MCV 88.8 fL (80-100) 07/04/20 17: MCH 29.7 pg (25-34) 07/04/20 17: MCHC 33.4 g/dL (32-36) 07/04/20 17: RDW Std Deviation 47.1 fL (36.4-46.3) H 07/04/20 17: RDW Coeff of Pamela 14.4 % (11.5-14.5) 07/04/20 17: Plt Count 241 K/uL (130-400) 07/04/20 17: MPV 9.2 fL (7.4-10.4) 07/04/20 17: Immature Gran % (Auto) 0.2 % 07/04/20 17: Neut % (Auto) 52.9 % 07/04/20 17: Lymph % (Auto) 38.2 % 07/04/20 17:27 [place] % (Auto) 5.8 % 07/04/20 17:27 Eos % (Auto) 2.5 % 07/04/20 17: Baso % (Auto) 0.4 % 07/04/20 17: Neut # (Auto) 4.40 K/uL (1.4-6.5) 07/04/20 17: Lymph # (Auto) 3.18 K/uL (1.2-3.4) 07/04/20 17:27 [place] # (Auto) 0.48 K/uL (0.11-0.59) 07/04/20 17:27 Eos # (Auto) 0.21 K/uL (0-0.5) 07/04/20 17:27 Baso # (Auto) 0.03 K/uL (0-0.2) 07/04/20 17:27 Immature Gran # (Auto) 0.02 K/uL (0.00-0.02) 07/04/20 17:27 PT 11.0 Seconds (9.0-12.0) 07/04/20 17: INR 1.0 (0.9-1.1) 07/04/20 17: APTT 28.8 Seconds (21.0-31.0) 07/04/20 17: PTT Ratio 1.0 07/04/20 17: Sodium 144 mmol/L (136-145) 07/04/20 17: Potassium 4.1 mmol/L (3.5-5.1) 07/04/20 17: Chloride 113 mmol/L (98-107) H 07/04/20 17: Carbon Dioxide 23 mmol/L (21-32) 07/04/20 17: Anion Gap 8.0 (3-11) 07/04/20 17: BUN 15 mg/dl (7-18) 07/04/20 17: Creatinine 1.12 mg/dl (0.6-1.2) 07/04/20 17: Est Cr Clr Drug Dosing 55.4 ml/min 07/04/20 17:27 Est GFR ( Amer) 61.0 07/04/20 17:27 Est GFR (Non-Af Amer) 52.6 07/04/20 17: BUN/Creatinine Ratio 13.3 (10-20) 07/04/20 17:27 Glucose 100 mg/dl (70-99) H 07/04/20 17:27 POC Glucose 110 mg/dl (70-99) H 07/04/20 17:22 Calcium 9.5 mg/dl (8.5-10.1) 07/04/20 17: Magnesium 1.3 mg/dl (1.8-2.4) L 07/04/20 17: Total Bilirubin 0.4 mg/dl (0.2-1) 07/04/20 17: AST 28 U/L (15-37) 07/04/20 17: ALT 33 U/L (12-78) 07/04/20 17:27 Alkaline Phosphatase 96 U/L (45-117) 07/04/20 17:27 Troponin I < 0.015 ng/ml (0-0.045) 07/04/20 17:27 Total Protein 7.8 gm/dl (6.4-8.2) 07/04/20 17: Albumin 3.7 gm/dl (3.4-5.0) 07/04/20 17: Globulin 4.1 gm/dl (2.5-4.0) H 07/04/20 17: Albumin/Globulin Ratio 0.9 (0.9-2) 07/04/20 17: Lipase 295 U/L (73-393) 07/04/20 17: TSH 2.230 uIu/ml (0.300-4.500) 07/04/20 17: Urine Color Yellow 07/04/20 17:50 Urine Appearance Clear (Clear) 07/04/20 17:50 Urine pH 5.0 (4.5-7.5) 07/04/20 17:50 Ur Specific [place] 1.026 (1.000-1.030) 07/04/20 17:50 Urine Protein Negative (Negative) 07/04/20 17:50 Urine Glucose (UA) Negative (Negative) 07/04/20 17:50 Urine Ketones Trace (Negative) H 07/04/20 17:50 Urine Blood Negative (Negative) 07/04/20 17:50 Urine Nitrite Negative (Negative) 07/04/20 17:50 Urine Bilirubin Negative (Negative) 07/04/20 17:50 Urine Urobilinogen Negative (Negative) 07/04/20 17:50 Ur Leukocyte Esterase Trace (Negative) H 07/04/20 17:50 Urine WBC (Auto) 1-5 /hpf (0-5) 07/04/20 17:50 Urine RBC (Auto) 0-4 /hpf (0-4) 07/04/20 17:50 U Hyaline Cast (Auto) 1-5 /lpf (0-5) 07/04/20 17:50 U Epithel Cells (Auto) 10-20 /lpf (0-5) H 07/04/20 17:50 Urine Bacteria (Auto) Negative (Negative) 07/04/20 17:[address] head: No acute intracranial abnormality. CTA head neck: Unremarkable CTA of the head and neck. CT abdomen pelvis noncontrast study: 1. No acute intra-abdominal or intrapelvic abnormality. 2. No bowel obstruction or bowel wall thickening. Normal appendix. EKG as per my interpretation: Rate 55, sinus bradycardia, LAD, LAFB, no ischemia (1) Altered mental status Altered mental status type: unspecified Qualified Code(s): R41.82 - Altered mental status, unspecified
[2020-07-04] MEDS ORDERED: ACETAMINOPHEN 325 MG TAB PO PRN (20:42)
[2020-07-04] MEDS ORDERED: KETOROLAC TROMETHAMINE 15 MG/ML VIAL IV PRN (20:42)
[2020-07-04] MEDS ORDERED: TRAMADOL HCL 50 MG TABLET PO PRN (20:42)
[2020-07-04] MEDS ORDERED: MoRPHine SULFATE 4 MG/ML 1 ML CARP\\VIAL IV PRN (20:42)
[2020-07-04] MEDS ORDERED: PROMETHAZINE HCL 12.5 MG in SODIUM CHLORIDE 0.9% 50 ML IV PRN (22:42)
[2020-07-04] MEDS ORDERED: GLUCOSE 10 TABS/TUBE PO PRN (22:42)
[2020-07-04] MEDS ORDERED: CARBOHYDRATES FOR HYPOGLYCEMIA PO PRN (22:42)
[2020-07-04] MEDS ORDERED: DEXTROSE 50% 50 ML SYRINGE IV PRN (22:42)
[2020-07-04] MEDS ORDERED: GLUCAGON FOR INJ 1 MG VIAL SQ PRN (22:42)
[2020-07-04] MEDS ORDERED: GLUCOSE 40% GEL 15 GM TUBE PO PRN (22:42)
[2020-07-04] MEDS ORDERED: MoRPHine SULFATE 2 MG/ML CARP IV PRN (22:46)
[2020-07-04] MEDS: MAGNESIUM SULFATE / D5W 1 GM/100 ML BAG IV SCH (23:01)
[2020-07-04] MEDS: DOCUSATE SODIUM 100 MG CAP PO SCH (23:04)
[2020-07-04] MEDS: INSULIN ASPART 100 UNITS/ML 3 ML PEN SC SCH (23:28)
[2020-07-05 00:41] LABS: Hematocrit (blood only) 33.3 % (37-47); Reticulocyte % 0.9 % (0.5-2.0); Reticulocytes # 0.03 10^6/uL (0.02-0.10)
[2020-07-05] MEDS: MAGNESIUM SULFATE / D5W 1 GM/100 ML BAG IV SCH (00:52)
[2020-07-05 01:05] LABS: Ferritin 66.3 ng/ml (8-388)
[2020-07-05 01:12] LABS: Folate (Folic Acid) 9.9 ng/ml (>5.38)
[2020-07-05 07:46] LABS: Hematocrit (blood only) 35.9 % (37-47); Hemoglobin 11.4 g/dL (12.0-16.0); Mean Corpuscular Hgb Conc 31.8 g/dL (32-36); Mean Corpuscular Volume 91.3 fL (80-100); Mean Platelet Volume 9.2 fL (7.4-10.4); Platelet Count 229 K/uL (130-400); RDW Coefficient of Variation 14.7 % (11.5-14.5); RDW Standard Deviation 49.8 fL (36.4-46.3); Red Blood Count 3.93 M/uL (4.2-5.4); White Blood Count 5.35 K/uL (4.8-10.8)
[2020-07-05 08:11] LABS: BUN Creatinine Ratio 13.3 (10-20); Calcium 9.3 mg/dl (8.5-10.1); Creatinine Clr Calc Pharmacy 55.4 ml/min; Est GFR (Non-African American) 52.6; Magnesium 2.5 mg/dl (1.8-2.4)
[2020-07-05 08:12] LABS: Basophils # (auto) 0.03 K/uL (0-0.2); Basophils % (auto) 0.6 %; Eosinophils # (auto) 0.24 K/uL (0-0.5); Eosinophils % (auto) 4.5 %; Immature Granulocytes # (auto) 0.01 K/uL (0.00-0.02); Immature Granulocytes % (auto) 0.2 %; Lymphocytes # (auto) 2.83 K/uL (1.2-3.4); Lymphocytes % (auto) 52.9 %; Monocytes % (auto) 7.5 %; Neutrophils # (auto) 1.84 K/uL (1.4-6.5); Neutrophils % (auto) 34.3 %
[2020-07-05] MEDS: ATORVASTATIN 40 MG TAB PO SCH (08:18)
[2020-07-05] MEDS: SERTRALINE HCL 50 MG TABLET PO SCH (08:18)
[2020-07-05] MEDS: allopurinoL 100 MG TAB PO SCH ×2 (08:18→20:47)
[2020-07-05] MEDS: lisinopriL 10 MG TAB PO SCH (08:18)
[2020-07-05] MEDS: DOCUSATE SODIUM 100 MG CAP PO SCH (08:20)
[2020-07-05] MEDS: INSULIN ASPART 100 UNITS/ML 3 ML PEN SC SCH ×4 (08:27→20:50)
--- NOTE | 2020-07-05 11:29 | Electrocardiogram Report ---
Test Reason : Blood Pressure : / mmHG Vent. Rate : 056 BPM Atrial Rate : 056 BPM P-R Int : 150 ms QRS Dur : 074 ms QT Int : 448 ms P-R-T Axes : 045 009 038 degrees QTc Int : 432 ms Sinus bradycardia Low voltage QRS Borderline ECG When compared with ECG of 15-MAR-2018 11:01, No significant change was found Confirmed by Guillermo Sauceda ([id number]) on 07/05/2020 11:29:17 AM Referred By: REFERRED SELF Confirmed By:Guillermo Sauceda
--- NOTE | 2020-07-05 16:13 | Hospitalist Progress Note ---
Date of Service July 05, 2020 Assessment & Plan (1) Altered mental status: Altered mental status Transient loss of memory Denies Syncope DD: Hypoglycemic episode due to medications, Dehydration, Infection, Anxiety Admits to Not checking her blood sugar levels regularly Denies any recent medication changes CT head:No acute intracranial abnormality. CTA Head:Unremarkable CTA of the head and neck. CTA Neck:Unremarkable CTA of the head and neck. Normal TSH, B 12 levels COVID -19 PCR Negative MRI Brain pending Monitor BGs Follow up cultures Received IV fluids R/O UTI Abnormal UA Denies Dysuria, Hematuria Urine Cx: Pending Empirically on Rocephin RLQ Abdominal Pain CT ABD: No acute intra-abdominal or intrapelvic abnormality. No bowel obstruction or bowel wall thickening. Normal appendix. Normal LFTs Currently resolved No tenderness on exam Consider further eval if recurrence of pain Sinus Bradycardia Not on any AV pola blocking agents Monitor on Tele Normocytic Anemia H/O Internal hemorrhoids, diverticulosis, polyp Last Colonoscopy in Oct 2018 Normal B12, Ferritin, Folic acid levels Hb 11.4 No active bleeding Monitor Hypertension BP stable Continue home medication Monitor Hyperlipidemia Continue Lipitor DM II A1C:6.10 April 2020 Continue p.o. meds Continue insulin therapy while hospitalized Monitor blood glucose levels Depression Continue Zoloft Has Outpatient appointment scheduled on Monday Monitor DVT Px: SCDs Re: Intermittent GI bleed Code Status Full code Disposition Expect to discharge home when stable Admission and Anticipated Discharge Date Admission Date: July 05, 2020 Subjective Patient is seen and examined at bedside States feeling much better today Confusion resolved Abdominal pain resolved as well Denies chest pain, shortness of breath, dizziness, nausea, vomiting, hematuria, dysuria Also denies any focal weakness Family at bedside Review of Systems Review of Systems: All systems reviewed & are unremarkable except as noted in HPI & below Physical Exam Physical Exam: Physical Exam: Vitals signs as noted above General Appearance:Obese, no apparent distress Head: normocephalic, Atraumatic Eyes: normal inspection, EOMI Neck: supple, Trachea midline Respiratory/Chest: Normal breath sounds, CTA Cardiovascular: S1, S2, No murmur Abdomen/GI:Soft, Non tender, Bowel sounds present Extremities/Musculoskelatal:normal inspection, 1+ B/L LE edema Neurologic/Psych:AAOX3, grossly no focal neurological deficits Skin: normal color, warm Results & Data Results & Data ([place]) Vital Signs (Past 12 Hours) Vital Signs Temp Pulse Pulse Resp BP BP Pulse Ox 07/05/20 15:07 36.7 C 56 L 18 112/70 96 07/05/20 15:04 59 L 07/05/20 12:04 36.7 C 49 L 20 144/83 H 97 07/05/20 07:54 36.6 C 51 L 18 127/83 97 Laboratory Results Short CBC 07/04/20 07/05/20 07/05/20 Range/Units 17:27 00:22 07:22 WBC 8.32 5.35 (4.8-10.8) K/uL Hgb 11.9 L 11.0 L 11.4 L (12.0-16.0) g/dL Hct 35.6 L 33.3 L 35.9 L (37-47) % Plt Count 241 229 (130-400) K/uL BMP 07/04/20 07/05/20 17:27 07:22 Sodium 144 142 Potassium 4.1 4.0 Chloride 113 H 110 H Carbon Dioxide 23 24 BUN 15 15 Creatinine 1.12 1.12 Glucose 100 H 93 Calcium 9.5 9.3 Cardiac Enzymes 07/04/20 Range/Units 17:27 Troponin I < 0.015 (0-0.045) ng/ml Liver Function 07/04/20 Range/Units 17:27 Total Bilirubin 0.4 (0.2-1) mg/dl AST 28 (15-37) U/L ALT 33 (12-78) U/L Alkaline Phosphatase 96 (45-117) U/L Albumin 3.7 (3.4-5.0) gm/dl Urine 07/04/20 Range/Units 17:50 Urine Color Yellow Urine Appearance Clear (Clear) Urine pH 5.0 (4.5-7.5) Ur Specific [place] 1.026 (1.000-1.030) Urine Protein Negative (Negative) Urine Glucose (UA) Negative (Negative) (1) Altered mental status Altered mental status type: unspecified Qualified Code(s): R41.82 - Altered mental status, unspecified
[2020-07-05] MEDS ORDERED: cefTRIAXone SODIUM 2,000 MG in DEXTROSE 5% 50 ML IV SCH (20:00)
[2020-07-06 07:03] LABS: Hematocrit (blood only) 34.6 % (37-47); Hemoglobin 10.7 g/dL (12.0-16.0); Mean Corpuscular Hemoglobin 28.2 pg (25-34); Mean Corpuscular Hgb Conc 30.9 g/dL (32-36); Mean Corpuscular Volume 91.3 fL (80-100); Platelet Count 222 K/uL (130-400); RDW Coefficient of Variation 14.7 % (11.5-14.5); RDW Standard Deviation 49.5 fL (36.4-46.3); Red Blood Count 3.79 M/uL (4.2-5.4); White Blood Count 5.63 K/uL (4.8-10.8)
[2020-07-06 07:36] LABS: BUN Creatinine Ratio 13.2 (10-20); Calcium 9.2 mg/dl (8.5-10.1); Creatinine Clr Calc Pharmacy 60.8 ml/min; Est GFR (African American) 68.3; Est GFR (Non-African American) 58.9; Magnesium 2.2 mg/dl (1.8-2.4); Potassium 4.1 mmol/L (3.5-5.1)
--- NOTE | 2020-07-06 07:36 | Magnetic Resonance Report ---
Brain MRI WITHOUT CONTRAST HISTORY: Transient loss of memory TECHNIQUE: Multiplanar multisequence MRI of the brain was performed without the use of contrast. COMPARISON STUDY: Head CT 07/04/2020. Brain MRI 08/07/2018. FINDINGS: There is no mass, hematoma, midline shift, or acute infarct. The paranasal sinuses are neil r. The mastoid air cells are clear. The ventricles and sulci demonstrate mild age-related involutiona l changes. Scattered foci of T2 hyperintensity seen within the periventricular and subcortical white matter are nonspecific but suggestive of mild microvascular ischemic changes. The major vascular flow voids at the skull base are well-maintained. IMPRESSION: No acute intracranial abnormality. A few scattered foci of T2 hyperintensity seen within the perivent ricular and subcortical white matter are nonspecific but favor microvascular ischemic change. ACT 112: Negative or not required by law. Electronically signed by: Jerad Paredes M.D. 07/06/2020 7:35 AM
[2020-07-06] MEDS: allopurinoL 100 MG TAB PO SCH (08:08)
[2020-07-06] MEDS: SERTRALINE HCL 50 MG TABLET PO SCH (08:08)
[2020-07-06] MEDS: ATORVASTATIN 40 MG TAB PO SCH (08:09)
[2020-07-06] MEDS: lisinopriL 10 MG TAB PO SCH (08:09)
[2020-07-06] MEDS: DOCUSATE SODIUM 100 MG CAP PO SCH (08:12)
[2020-07-06] MEDS: INSULIN ASPART 100 UNITS/ML 3 ML PEN SC SCH ×2 (08:14→12:36)
--- NOTE | 2020-07-06 13:50 | Hospitalist Progress Note ---
Date of Service July 06, 2020 Assessment & Plan (1) Altered mental status: Altered mental status Transient loss of memory Denies Syncope DD: Hypoglycemic episode due to medications, Dehydration, Anxiety Admits to Not checking her blood sugar levels regularly Denies any recent medication changes CT head:No acute intracranial abnormality. CTA Head:Unremarkable CTA of the head and neck. CTA Neck:Unremarkable CTA of the head and neck. Normal TSH, B 12 levels COVID -19 PCR Negative MRI Brain : No acute intracranial abnormality. A few scattered foci of T2 hyperintensity seen within the periventricular and subcortical white matter are nonspecific but favor microvascular ischemic change. Monitor BGs Urine culture: No growth Received IV fluids Advised to monitor BGs at home Advised to follow-up with her neurologist as outpatient Ruled out UTI Abnormal UA Denies Dysuria, Hematuria Urine Cx: No growth Discontinue Rocephin RLQ Abdominal Pain CT ABD: No acute intra-abdominal or intrapelvic abnormality. No bowel obstruction or bowel wall thickening. Normal appendix. Normal LFTs No tenderness on exam Consider further eval if recurrence of pain Resolved Sinus Bradycardia Not on any AV pola blocking agents Monitor on Tele Asymptomatic Normocytic Anemia H/O Internal hemorrhoids, diverticulosis, polyp Last Colonoscopy in Oct 2018 Normal B12, Ferritin, Folic acid levels Hb stable No active bleeding Monitor Hypertension BP stable Continue home medication Monitor Hyperlipidemia Continue Lipitor DM II A1C:6.10 April 2020 Continue p.o. meds Continue insulin therapy while hospitalized Monitor blood glucose levels Depression Continue Zoloft Has Outpatient appointment scheduled on Monday Monitor DVT Px: SCDs Re: Intermittent GI bleed Code Status Full code Disposition Plan to discharge home today Admission and Anticipated Discharge Date Admission Date: July 05, 2020 Subjective Patient is seen and examined at bedside No new complaints today No recurrence of confusion Denies chest pain, SOB, ABD pain, dizziness, nausea, vomiting, hematuria, dysuria Eager to get discharged Review of Systems Review of Systems: All systems reviewed & are unremarkable except as noted in HPI & below Physical Exam Physical Exam: Physical Exam: Vitals signs as noted above General Appearance:Obese, no apparent distress Head: normocephalic, Atraumatic Eyes: normal inspection, EOMI Neck: supple, Trachea midline Respiratory/Chest: Normal breath sounds, CTA Cardiovascular: S1, S2, No murmur Abdomen/GI:Soft, Non tender, Bowel sounds present Extremities/Musculoskelatal:normal inspection, 1+ B/L LE edema Neurologic/Psych:AAOX3, grossly no focal neurological deficits Skin: normal color, warm Results & Data Results & Data ([facility]) Vital Signs (Past 12 Hours) Vital Signs Temp Pulse Pulse Resp BP BP Pulse Ox 07/06/20 11:10 97 07/06/20 10:56 36.7 C 51 L 18 121/75 97 07/06/20 07:53 36.6 C 51 L 17 125/77 96 07/06/20 05:07 36.6 C 51 L 16 116/69 94 07/06/20 01:52 73 Laboratory Results Short CBC 07/06/20 Range/Units 06:15 WBC 5.63 (4.8-10.8) K/uL Hgb 10.7 L (12.0-16.0) g/dL Hct 34.6 L (37-47) % Plt Count 222 (130-400) K/uL BMP 07/06/20 06:15 Sodium 144 Potassium 4.1 Chloride 112 H Carbon Dioxide 25 BUN 14 Creatinine 1.02 Glucose 98 Calcium 9.2 (1) Altered mental status Altered mental status type: unspecified Qualified Code(s): R41.82 - Altered mental status, unspecified
--- NOTE | 2020-07-06 13:58 | Discharge Summary ---
Date of Service July 06, 2020 Admission HPI Per Admitting Provider History obtained from patient, family, and records. Patient is a fair historian. Medical history significant for hypertension, hyperlipidemia, DM 2 on oral medications, hypothyroidism, mood disorder, essential tremor as per records, past tobacco abuse. Last confinement November 2009 under Orthopedics service for elective right hip surgery. Patient called her daughter this afternoon sounding very anxious. Family checked on patient at home and noted her to be confused and forgetful. Could not remember that she called daughter earlier. Denies headache, chest pain, shortness of breath, cough symptoms. No slurred speech or extremity weakness as per patient/family account. Runny nose for about 2 days. Appetite not too good the last few days as per daughter. Patient has been worried about possible COVID-19 contact as per daughter. At the ER, patient had sudden onset of achy right lower quadrant pain without other accompanying symptoms. No change in bowel habits as per patient. No fever, no chills. Patient denies actual dysuria. Stroke alert called upon arrival at the ER. TPA not recommended by [facility] stroke specialist given patient circumstances. Medical History as above May 2020 - traumatic left elbow radial head fracture status post nonoperative management. 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 Admission Exam Per Admitting Provider GENERAL: uncomfortable, obese, no respiratory distress, anxious, oriented to month SKIN: Normal color, warm HEENT: [place] palpebral conjunctivae, no ptosis, dry buccal mucosa NECK : Supple, short neck, no tenderness CHEST : CTA, no tenderness HEART : Bradycardic, no obvious murmurs ABDOMEN: Some distention, minimal RLQ tenderness EXTREMITIES : No LE swelling/tenderness, no other conspicuous deformities noted NEUROLOGIC : Coherent, oriented to month, no facial asymmetry, no other gross focality Principal Diagnosis Altered mental status Transient loss of memory Abdominal Pain Discharge Data Allergies Allergy/AdvReac Type Severity Reaction Status Date / Time No Known Allergies Allergy Verified 07/04/20 18:51 Consultations 07/04/20 18:19 ED Decision to Admit Stat Procedures Performed CT head:No acute intracranial abnormality. CTA Head:Unremarkable CTA of the head and neck. CTA Neck:Unremarkable CTA of the head and neck. CT ABD: No acute intra-abdominal or intrapelvic abnormality. No bowel obstruction or bowel wall thickening. Normal appendix. Ordered Studies 07/04/20 17:16 CT angio head w con Stat CT angio neck with con Stat CT head/brain wo con Stat 07/04/20 19:27 CT abd pelvis wo con Stat 07/06/20 02:10 MR brain wo con Routine Hospital Course (1) Altered mental status: Altered mental status Transient loss of memory Denies Syncope DD: Hypoglycemic episode due to medications, Dehydration, Anxiety Admits to Not checking her blood sugar levels regularly Denies any recent medication changes CT head:No acute intracranial abnormality. CTA Head:Unremarkable CTA of the head and neck. CTA Neck:Unremarkable CTA of the head and neck. Normal TSH, B 12 levels COVID -19 PCR Negative MRI Brain : No acute intracranial abnormality. A few scattered foci of T2 hyperintensity seen within the periventricular and subcortical white matter are nonspecific but favor microvascular ischemic change. Monitor BGs Urine culture: No growth Received IV fluids Advised to monitor BGs at home Advised to follow-up with her neurologist as outpatient Ruled out UTI Abnormal UA Denies Dysuria, Hematuria Urine Cx: No growth Discontinue Rocephin RLQ Abdominal Pain CT ABD: No acute intra-abdominal or intrapelvic abnormality. No bowel obstruction or bowel wall thickening. Normal appendix. Normal LFTs No tenderness on exam Consider further eval if recurrence of pain Resolved Sinus Bradycardia Not on any AV pola blocking agents Monitor on Tele Asymptomatic Normocytic Anemia H/O Internal hemorrhoids, diverticulosis, polyp Last Colonoscopy in Oct 2018 Normal B12, Ferritin, Folic acid levels Hb stable No active bleeding Monitor Hypertension BP stable Continue home medication Monitor Hyperlipidemia Continue Lipitor DM II A1C:6.10 April 2020 Continue p.o. meds Continue insulin therapy while hospitalized Monitor blood glucose levels Depression Continue Zoloft Has Outpatient appointment scheduled on Monday Monitor DVT Px: SCDs Re: Intermittent GI bleed Code Status Full code Disposition Plan to discharge home today Total Time Total Time Spent Total Time Spent (In Minutes): 35 minutes Total Time Includes: Examination of the Patient, Discharge Planning, Medication Reconciliation, Communication With Other Providers and Other Discharge Plan Discharge Items Patient Disposition: Home - Self-Care Reason For Visit: AMS,COVID NEG,DC ISOL Discharge Diagnosis: Altered mental status Transient loss of memory Abdominal Pain Activity: Resume your previous activity Exercise/Sports: Gradually increase as tolerated Non-emergency contact: Primary Care Provider and Neurologist Call non-emergency contact if: you have any medication questions, your symptoms worsen, your pain is not controlled, your pain is worsening, your pain is unusual for you, your pain is concerning for you and you have a fever Follow-up/Referrals: Daniel Frankel MD [Primary Care Provider] - 07/10/20 11:20 am (Date & Time 07/10/2020 11:20 AM Provider Daniel Frankel MD Department General Internal Medicine [facility] ) Diet: Carb Consistent or DM2 and Heart Healthy Addtl Attending Provider Instructions: Follow-up with your primary care physician Dr. Frankel on July 10, 2020 at 11:20 AM Consider following with your neurologist in 2 to 3 weeks as advised Check your blood sugar levels regularly as advised Seek immediate medical attention if your symptoms reoccur or worsen Pending Studies at Discharge: No Stand-Alone Forms: My WhoJam, Smoking Cessation Medications and DC Order Prescriptions: Continued Trulicity 1.5 mg/0.5 mL pen injector 1.5 mg subcut WEEKLY Qty: 2 RF: 3 lisinopril 10 mg tablet 10 mg PO DAILY Qty: 90 RF: 1 sertraline 50 mg tablet See Rx Instructions .ROUTE .COMPLEX Qty: 90 RF: 0 fluticasone propionate [Allergy Relief (fluticasone)] 50 mcg/actuation spray,suspension 2 sprays INTNAS DAILY PRN (Reason: nasal congestion) RF: 0 (DME) lancets [OneTouch Delica Lancets] 30 gauge misc See Dose Instructions .ROUTE .MEDSUPPLY Qty: 25 RF: 0 (DME) OneTouch Ultra Blue Test Strip strip See Dose Instructions .ROUTE .MEDSUPPLY Qty: 10 RF: 0 Adult Fiber Gummies 0 mg PO DAILY RF: 0 atorvastatin [Lipitor] 80 mg tablet 80 mg PO DAILY RF: 0 fexofenadine 180 mg Tablet 180 mg PO DAILY PRN (Reason: ALLERGIES) RF: 0 metformin [Glucophage] 1,000 mg tablet 1,000 mg PO BID RF: 0 omega-3 fatty acids-vitamin E 1,000 mg Capsule 1 cap PO DAILY RF: 0 biotin 1 mg Tablet 0 mg PO DAILY RF: 0 Hylands 1 tab PO DAILY PRN (Reason: LEG CRAMPS) RF: 0 allopurinol [Zyloprim] 100 mg tablet 100 mg PO BID RF: 0 cholecalciferol (vitamin D3) 50,000 unit capsule 50,000 units PO WK RF: 0 aspirin [Aspir-81] 81 mg Tablet,Delayed Release (Dr/Ec) 81 mg PO QAM RF: 0 potassium 99 mg Tablet 99 mg PO QAM RF: 0 docusate sodium [Stool Softener] 100 mg Capsule 100 mg PO DIRECTED RF: 0 Discharge Orders: Discharge Order (Routine); Ordered 07/06/20 Ordered By: Lázaro Urena Admission Data Admit Date/Time: 07/05/20 14:14 Attending Provider: Lázaro Urena Admit Provider: Abdulkadir Clay Primary Care Provider: Daniel Frankel Other Providers: Abdulkadir Clay Other Interventions: Discharge Summary Assessment (RN) Last Done: 07/06/20 14:17
== END 2020-07-06 16:44 | disposition home or self-care (01) | DRG 948 ==
LOC: ED 16:35 → 2N 16:35

== ENCOUNTER 2023-01-20 08:52 | Inpatient (IN) ==
[2023-01-20] MEDS ORDERED: MoRPHine SULFATE 4 MG/ML 1 ML CARP\\VIAL IV STA (09:10)
[2023-01-20] MEDS ORDERED: ONDANSETRON INJ 2 MG/ML 2 ML VIAL IV STA (09:10)
--- NOTE | 2023-01-20 09:53 | Emergency Department Note ---
Impression & Plan Accidental fall, Closed left fibular fracture, Closed trimalleolar fracture of right ankle ED Provider Note INFORMANT: Patient ED PROVIDER(S): Star Hollingsworth MD CHIEF COMPLAINT: Fall PLAN: Disposition: Admitted Condition: Good Outpatient prescription management: none Referral: None MEDICAL DECISION MAKING: patient presented because of an accidental fall. She was tender in both ankles. X-ray imaging was performed and unfortunately she has a left fibula fracture and a Not significantly displaced right trimalleolar fracture. The patient was splinted on both sides. She was treated with IV morphine and then IV Dilaudid. Consultation was made with orthopedics, Dr. Stanford. Case was discussed and diagnostics were reviewed. The patient will be admitted by internal medicine and orthopedics will consult. [facility] Patient was evaluated in the ER and admitted for further management. After review of the information above and other included data, I feel the patient requires admission as she cannot ambulate and lives alone. Discussed with manager practice. Triage Nursing notes reviewed and agree them. Vital Signs: reviewed and remarkable for no significant abnormalities Prior /Outside records reviewed: none Differential diagnosis: Fracture, subluxation, dislocation, contusion, ligamentous injury, neurovascular, compartment syndrome, rhabdomyolysis, as well as other patho logies. Diagnostics, as interpreted by me: ECG: none Cardiac Monitoring: Cardiac monitoring ordered by me: The patient was placed on continuous cardiac monitoring and observed. It revealed a normal sinus rhythm at 60 beats per minute without ectopy or evidence of dysrhythmia. Medical decision rules: none Imaging studies: X-ray imaging of the left ankle reveals a distal fibula fracture. X-ray imaging of the right ankle is consistent with a trimalleolar fracture. HPI: The patient is a 67year old female who presents to the Emergency Room with complaints of bilateral ankle pain after an accidental fall. This started this morning and is losing her balance while walking her dogs after they pulled her off a curb. The patient also notes the following associated symptoms, swelling of the ankles but more so on the right. The patient has taken no medication for relieving factors. Current pain is rated as 10/10. Patient denies any other injury. Patient was unable to walk so EMS was summoned. Pt denies LOC, headache, visual changes, neck pain, chest pain, breathing difficulties, nausea, vomiting, abdominal pain, back pain, other extremity pain, numbness, weakness, open wounds, active bleeding, or other complaints. PAST MEDICAL HISTORY: See Below, diabetes PAST SURGICAL HISTORY: See Below, SOCIAL HISTORY: See Below, lives alone HOME MEDICATIONS: See Below ALLERGIES: See Below VITALS: See Below PHYSICAL EXAMINATION: GENERAL: Awake, alert, very uncomfortable-appearing, in no distress HENT: Normocephalic, atraumatic. Oropharynx unremarkable. EYES: Normal conjunctiva. Sclera non-icteric. NECK: Inspection normal. Non-tender. Supple. No nuchal rigidity. FROM. No masses. RESPIRATORY: Clear to auscultation. No wheezes. No rales. Normal respiratory effort. CARDIAC: Normal rate. Normal rhythm. No murmurs. No rubs. Extremities warm and well perfused. Pulses equal. No JVD. GI: Soft, non-distended. No tenderness to palpation. No rebound or guarding. No masses. MUSCULOSKELETAL: Upper extremities are atraumatic. No hip tenderness bi laterally. Knees are unremarkable bilaterally. There is tenderness about the lateral malleolus on the left with mild decreased range of motion. The remainder of the left lower extremity is atraumatic. On examination of right lower extremity there is moderate edema around the right ankle. Moderate tenderness palpation and limited range of motion secondary to pain. No open wounds bilaterally. Both lower extremities are neurovascular intact. LOWER EXTREMITIES: Calves are equal size bilaterally and non-tender. No edema. No discoloration. NEURO: Normal sensorium. No sensory or motor deficits noted. SKIN: No rash or jaundice noted. SPLINTING: Indication: Left ankle fracture The injured extremity was identified. The patient was prepped and measured for the placement of a short leg posterior orthoglass splint. Splint applied in the standard fashion over a layer of webril and secured using an elastic bandage. Set into a position of function. Normal neurovascular status after placement verified. The patient tolerated the procedure well. No complications. SPLINTING: Indication: Right ankle fracture The injured extremity was identified. The patient was prepped and measured for the placement of a short leg posterior with stirrup orthoglass splint. Splint applied in the standard fashion over a layer of webril and secured using an elastic bandage. Set into a position of function by me. Normal neurovascular status after placement verified by me. The patient tolerated the procedure well. No complications. Past Med/Surg History Medical History (Updated 01/20/23 @ 16:53 by Star Hollingsworth MD) Anxiety Benign essential tremor Chronic kidney disease monitoring levels. CKD (chronic kidney disease), stage III Claustrophobia Depression Depression with anxiety Diabetes mellitus, type 2 niddm Dry cough Gastroesophageal reflux disease with esophagitis Gout History of anesthesia reaction awareness during hip surgery. HTN (hypertension) RIGHT Hx of closed fracture elbow/radius (2019) Hypercholesterolemia Hyperlipidemia Hypothyroidism Migraine rarely Surgical History History of cardiac cath no stents at [facility] ~2004 History of section EMERGENCY History of colonoscopy History of esophagogastroduodenoscopy (EGD) History of total hip arthroplasty right hip Status post trigger finger release THUMB Family History Other Cancer Diabetes Heart disease Hypertension No family history of adverse response to anesthesia Social History Smoking Status: Former smoker Cigarettes Per Day: QUIT 11 YEARS AGO; Second Hand Exposure: No; Do You Dip or Chew Tobacco: No; Tobacco Cessation Education Requested by Patient: No Hx Alcohol Use: Yes Alcohol type: wine Hx Substance Use: Yes Last Used Substance Other:: when teenager Substance Use Type Other:: marijuana Preferred Language: Pashto Communication Ability: Effective Network Operations Manager Required: No Beliefs That Will Affect Care: None marital status: / Current Living Situation: Alone Current Living Situation Comment: 3 story home, lives in basement, has 2 large dogs current occupational status: employed Other Information That Helps Us Care for You: No Feels Safe at Home: Yes Safety Concerns: Feels Safe At This Time Assistive Devices: Glasses Allergies Allergies Allergy/AdvReac Type Severity Reaction Status Date / Time No Known Allergies Allergy Verified 10/25/22 08:51 Home Meds Home Medications Medication Instructions Recorded Confirmed aspirin 81 mg tablet,delayed 81 mg PO QAM 07/17/18 01/20/23 release (Aspir-) atorvastatin 80 mg tablet (Lipitor) 80 mg PO QAM 07/04/20 01/20/23 Burn 1 tab PO QAM 10/18/22 01/20/23 cholecalciferol (vitamin D3) 50 50 mcg PO QAM 10/18/22 01/20/23 mcg (2,000 unit) capsule (Vitamin D3) cyanocobalamin (vitamin B-12) 1,000 mcg PO QPM 10/18/22 01/20/23 1,000 mcg tablet (Vitamin B-12) docusate sodium 100 mg capsule 200 mg PO HS 10/18/22 01/20/23 (Stool Softener) docusate sodium 100 mg capsule 300 mg PO QAM 10/18/22 01/20/23 (Stool Softener) dulaglutide 1.5 mg/0.5 mL 1.5 mg subcut WK 10/18/22 01/20/23 subcutaneous pen injector (Trulicity) inulin 2 gram chewable tablet 4 g PO QAM 10/18/22 01/20/23 (Fiber Gummies) levothyroxine 50 mcg tablet 50 mcg PO QAM 10/18/22 01/20/23 lisinopril 5 mg tablet 5 mg PO QAM 10/18/22 01/20/23 magnesium oxide 400 mg PO HS 10/18/22 01/20/23 metformin 1,000 mg tablet 1,000 mg PO BID 10/18/22 01/20/23 omega-3 fatty acids-vitamin E 1 cap PO QAM 10/18/22 01/20/23 1,000 mg capsule riboflavin (vitamin B2) 100 mg 100 mg PO QPM 10/18/22 01/20/23 tablet (Vitamin B-2) sertraline 100 mg tablet 100 mg PO QAM 10/18/22 01/20/23 Previous Rx's Medication Instructions Recorded blood sugar diagnostic ([employer] MedicalTouch #10 ea 05/17/19 Ultra Blue Test Strip) lancets 30 gauge (OneTouch Delica #25 ea 05/17/19 Lancets) allopurinol 100 mg tablet 100 mg PO BID Gout #180 tabs 11/10/20 (Zyloprim) Results & Data (ED) Vital Signs Vital Signs - 24 hr 01/20/23 09:00 01/20/23 09:31 01/20/23 10:47 Temperature 37.1 C Temperature Source Oral Pulse Rate 54 L 56 L Pulse Rate [Apical] 58 L Respiratory Rate 18 12 Blood Pressure 154/83 H Blood Pressure [Left Arm] 137/73 Blood Pressure Mean 106 Blood Pressure Mean [Left Arm] 94 Pulse Oximetry 98 99 Oxygen Delivery Method Room Air Nasal Cannula Oxygen Flow Rate 2 Sepsis Recent Fever Within 48 Hours No Sepsis New/Unexplained Change in Mental Status No Sepsis Action Taken by Nursing No Action Required Laboratory Data 01/20/23 10:39 01/20/23 10:39 Lab Results 01/20/23 01/20/23 01/20/23 Range/Units 10:39 10:39 10:39 WBC 6.38 (4.8-10.8) K/ul RBC 3.76 L (4.20-5.40) M/uL Hgb 11.2 L (12.0-16.0) g/dl Hct 34.1 L (37.0-47.0) % MCV 90.7 (80.0-100.0) fL MCH 29.8 (25.0-34.0) pg MCHC 32.8 (32.0-36.0) g/dL RDW Std Deviation 48.4 H (36.4-46.3) fL RDW Coeff of Pamela 14.6 H (11.5-14.5) % Plt Count 197 (130-400) K/uL MPV 8.9 L (9.4-12.4) fL Immature Gran % (Auto) 0.2 % Neut % (Auto) 57.1 % Lymph % (Auto) 34.0 % [place] % (Auto) 6.0 % Eos % (Auto) 2.2 % Baso % (Auto) 0.5 % Neut # (Auto) 3.65 (1.40-6.50) K/uL Lymph # (Auto) 2.17 (1.2-3.4) K/uL [place] # (Auto) 0.38 (0.11-0.59) K/uL Eos # (Auto) 0.14 (0-0.50) K/uL Baso # (Auto) 0.03 (0-0.2) K/uL Immature Gran # (Auto) 0.01 (0.01-0.20) K/uL PT 10.4 (9.0-12.0) Seconds INR 1.0 (0.9-1.1) APTT 25.4 (21.0-31.0) Seconds PTT Ratio 0.9 Sodium 141 (136-145) mmol/L Potassium 4.5 (3.5-5.1) mmol/L Chloride 108 H (98-107) mmol/L Carbon Dioxide 28 (21-32) mmol/L Anion Gap 5 (3-11) BUN 25 H (6-23) mg/dl Creatinine 1.16 (0.6-1.2) mg/dl Est Cr Clr Drug Dosing 48.8 ml/min Est GFR ( Amer) 57.2 ml/min Est GFR (Non-Af Amer) 49.4 ml/min BUN/Creatinine Ratio 21.6 H (10-20) Glucose 103 H (70-99(Fasting)) mg/dl Calcium 9.0 (8.6-10.3) mg/dl Total Bilirubin 0.4 (0.2-1.0) mg/dl AST 23 (13-39) U/L ALT 18 (7-52) U/L Alkaline Phosphatase 66 (34-104) U/L Total Protein 6.2 (6.0-8.3) gm/dl Albumin 3.9 (3.4-5.0) gm/dl Globulin 2.3 L (2.5-4.0) gm/dl Albumin/Globulin Ratio 1.7 (0.9-2) SARS-CoV-2, RNA, NAAT (NEGATIVE) 01/20/23 Range/Units 10:45 WBC (4.8-10.8) K/ul RBC (4.20-5.40) M/uL Hgb (12.0-16.0) g/dl Hct (37.0-47.0) % MCV (80.0-100.0) fL MCH (25.0-34.0) pg MCHC (32.0-36.0) g/dL RDW Std Deviation (36.4-46.3) fL RDW Coeff of Pamela (11.5-14.5) % Plt Count (130-400) K/uL MPV (9.4-12.4) fL Immature Gran % (Auto) % Neut % (Auto) % Lymph % (Auto) % [place] % (Auto) % Eos % (Auto) % Baso % (Auto) % Neut # (Auto) (1.40-6.50) K/uL Lymph # (Auto) (1.2-3.4) K/uL [place] # (Auto) (0.11-0.59) K/uL Eos # (Auto) (0-0.50) K/uL Baso # (Auto) (0-0.2) K/uL Immature Gran # (Auto) (0.01-0.20) K/uL PT (9.0-12.0) Seconds INR (0.9-1.1) APTT (21.0-31.0) Seconds PTT Ratio Sodium (136-145) mmol/L Potassium (3.5-5.1) mmol/L Chloride (98-107) mmol/L Carbon Dioxide (21-32) mmol/L Anion Gap (3-11) BUN (6-23) mg/dl Creatinine (0.6-1.2) mg/dl Est Cr Clr Drug Dosing ml/min Est GFR ( Amer) ml/min Est GFR (Non-Af Amer) ml/min BUN/Creatinine Ratio (10-20) Glucose (70-99(Fasting)) mg/dl Calcium (8.6-10.3) mg/dl Total Bilirubin (0.2-1.0) mg/dl AST (13-39) U/L ALT (7-52) U/L Alkaline Phosphatase (34-104) U/L Total Protein (6.0-8.3) gm/dl Albumin (3.4-5.0) gm/dl Globulin (2.5-4.0) gm/dl Albumin/Globulin Ratio (0.9-2) SARS-CoV-2, RNA, NAAT NEGATIVE (NEGATIVE) Administered Medications Acetaminophen (Acetaminophen 325 Mg Tab) 650 mg PO TID [facility] Stop: 02/19/23 13:59 Last Admin: 01/20/23 14:16 Dose: 650 mg Documented By: OL Ketorolac Tromethamine (Ketorolac Tromethamine 15 Mg/Ml Vial) 15 mg IV Q6H PRN PRN Reason: Pain Stop: 01/25/23 14:06 Last Admin: 01/20/23 14:16 Dose: 15 mg Documented By: OL Discontinued Medications Sodium Chloride (Nss 1000ml) 1,000 mls @ 75 mls/hr IV .[id number] [facility] Stop: 01/20/23 23:49 Last Admin: 01/20/23 15:56 Dose: Not Given Documented By: MAMTA Morphine Sulfate (Morphine Sulfate 4 Mg/Ml 1 Ml Carp\Vial) 4 mg IV NOW STA Stop: 01/20/23 09:11 Last Admin: 01/20/23 09:20 Dose: 4 mg Documented By: HAL Ondansetron HCl (Ondansetron Inj 2 Mg/Ml 2 Ml Vial) 4 mg IV NOW STA Stop: 01/20/23 09:11 Last Admin: 01/20/23 09:20 Dose: 4 mg Documented By: HAL Imaging Data Radiologist's Impression: Ankle X-Ray 01/20/23 09:10 XR ankle LT min 3V routine CLINICAL HISTORY: swelling, pain, fall COMPARISON: Left ankle radiographs 01/20/2016. FINDINGS: Lateral ankle soft tissue swelling is noted. Note is made of lucency with cortical irregularity of the fibular tip. This represents an acute minimally displaced fracture 8 mm proximal to the fibular tip. Well-corticated ossicle along the medial malleolus is chronic. There is plantar calcaneal spurring. No ankle mortise widening. IMPRESSION: 1. Acute minimally displaced left fibular tip fracture. 2. Lateral ankle soft tissue swelling. 3. Tibiotalar joint osteophytosis. Well corticated ossicle along the medial malleolus which is chronic. 4. No ankle mortise widening. ACT 112: Negative or not required by law. Electronically signed by: Hitesh Eid M.D. 01/20/2023 10:12 AM Ankle X-Ray 01/20/23 09:10 RIGHT ANKLE 3 VIEWS CLINICAL HISTORY: Fall with right ankle injury. FINDINGS: 3 views of the right ankle are obtained. No prior studies are available for comparison at the time of dictation. The skeletal structures are osteopenic. There is a displaced spiral fracture of the distal fibula. The fragments are offset by up to 4 mm. There is nondisplaced fracture through the medial malleolus, as well as a mildly displaced vertically oriented fracture through the posterior malleolus of the tibia. There is widening of the medial joint space, as well as mild anterior subluxation of the talus at the tibiotalar articulation. There is an ankle joint effusion. Soft tissue edema it is seen around the ankle. There is a plantar heel spur. IMPRESSION: 1. Trimalleolar fracture of the right ankle as above with associated joint effusion and soft tissue edema. 2. There is mild widening of the medial joint space as well as mild anterior subluxation of the talus at the tibiotalar articulation. Electronically signed by: West Gross M.D. 01/20/2023 10:14 AM Discharge Plan Visit Data Chief Complaint: Ankle Pain ED Provider: Star Hollingsworth Discharge Problem: Accidental fall, Closed left fibular fracture, Closed trimalleolar fracture of right ankle Patient Disposition: Admitted As Inpatient Discharge Instructions Interventions: ED Discharge Assessment Last Done: 01/20/23 16:09
--- NOTE | 2023-01-20 10:13 | XRay Report ---
XR ankle LT min 3V routine CLINICAL HISTORY: swelling, pain, fall COMPARISON: Left ankle radiographs 01/20/2016. FINDINGS: Lateral ankle soft tissue swelling is noted. Note is made of lucency with cortical irregul arity of the fibular tip. This represents an acute minimally displaced fracture 8 mm proximal to the fibular tip. Well-corticated ossicle along the medial malleolus is chronic. There is plantar calcanea l spurring. No ankle mortise widening. IMPRESSION: 1. Acute minimally displaced left fibular tip fracture. 2. Lateral ankle soft tissue swelling. 3. Tibiotalar joint osteophytosis. Well corticated ossicle along the medial malleolus which is chroni c. 4. No ankle mortise widening. ACT 112: Negative or not required by law. Electronically signed by: Hitesh Eid M.D. 01/20/2023 10:12 AM
--- NOTE | 2023-01-20 10:15 | XRay Report ---
RIGHT ANKLE 3 VIEWS CLINICAL HISTORY: Fall with right ankle injury. FINDINGS: 3 views of the right ankle are obtained. No prior studies are available for comparison at t he time of dictation. The skeletal structures are osteopenic. There is a displaced spiral fracture of the distal fibula. The fragments are offset by up to 4 mm. There is nondisplaced fracture through th e medial malleolus, as well as a mildly displaced vertically oriented fracture through the posterior malleolus of the tibia. There is widening of the medial joint space, as well as mild anterior subluxa tion of the talus at the tibiotalar articulation. There is an ankle joint effusion. Soft tissue edema it is seen around the ankle. There is a plantar heel spur. IMPRESSION: 1. Trimalleolar fracture of the right ankle as above with associated joint effusion and soft tissue e zeyad. 2. There is mild widening of the medial joint space as well as mild anterior subluxation of the talus at the tibiotalar articulation. Electronically signed by: West Gross M.D. 01/20/2023 10:14 AM
[2023-01-20] MEDS ORDERED: HYDROmorphone INJ 0.5 MG/0.5 ML SYR IV PRN (10:18)
[2023-01-20] MEDS ORDERED: SODIUM CHLORIDE 0.9% 1000ML 1,000 ML IV SCH (10:30)
--- NOTE | 2023-01-20 10:59 | History & Physical Report ---
Date of Service January 20, 2023 Assessment & Plan (1) Acute right ankle pain: Plan: Bilateral ankle fractures Non weight bearing Ortho consulted Pain control Pre-op Cardiac risk stratification is pending EKG. (2) Acute left ankle pain: (3) Accidental fall: (4) Vitamin D insufficiency: Plan: Continue supplement (5) Migraine headache: Plan: None currently (6) Hypercholesterolemia: Plan: Continue statin (7) Depression with anxiety: Plan: Continue sertraline (8) CKD (chronic kidney disease), stage III: Plan: Cr remains within baseline (9) Benign essential hypertension: Plan: Continue lisinopril with hold parameters (10) DM (diabetes mellitus): Plan: Not on insulin, hold metformin Correctional scale insulin while here Glycemic pharmacy consult Patient will be NPO until evaluated by ortho in the event she goes to OR today. Otherwise will order next meal to begin dinner time and NPO after midnight Last Ha1c 6.3% in outpatient labs. Repeat tomorrow (11) Gout: Plan: continue allopurinol Plan DVT ppx Hold AC for now in event she goes to OR in next 24 hours History of Present Illness Primary Care Provider: Marciano Perez DO Ms Patrica Obrien is a 67 year old female with history of anxiety, essential tremor, CKD, depression, hypertension, hypothyroidism, non insulin dependent diabetes, gout, hyperlipidemia, migraine headaches, former smoker, presents to the ER with bilateral ankle pain and swelling after a mechanical fall while walking her dogs today. She was found to have bilateral ankle fractures (right-- displaced spiral fracture of distal fibula, mildly displaced tibial fracture, trimalleolar fracture. Left- left fibular fracture). Orthopedic consult placed by ER. Hospitalist service contacted for admission for further management. ER course- Morphine 4mg IV, zofran 4mg IV On a daily basis, she walks her dogs about 4-6 times a day (about 30 minutes twice a day and 10-15 min the other times), daily ADLs (laundry, cleaning) with no shortness of breath or chest pain. Has not taken her medications today. No recent medication changes. Allergies Allergy/AdvReac Type Severity Reaction Status Date / Time No Known Allergies Allergy Verified 10/25/22 08:51 Home Medications Medication Instructions Recorded Confirmed Type aspirin 81 mg tablet,delayed 81 mg PO QAM 07/17/18 01/20/23 History release (Aspir-) blood sugar diagnostic (NaunTouch #10 ea 05/17/19 12/03/19 Rx Ultra Blue Test Strip) lancets 30 gauge (Evan Delica #25 ea 05/17/19 12/03/19 Rx Lancets) atorvastatin 80 mg tablet (Lipitor) 80 mg PO QAM 07/04/20 01/20/23 History allopurinol 100 mg tablet 100 mg PO BID Gout #180 tabs 11/10/20 01/20/23 Rx (Zyloprim) Burn 1 tab PO QAM 10/18/22 01/20/23 History cholecalciferol (vitamin D3) 50 50 mcg PO QAM 10/18/22 01/20/23 History mcg (2,000 unit) capsule (Vitamin D3) cyanocobalamin (vitamin B-12) 1,000 mcg PO QPM 10/18/22 01/20/23 History 1,000 mcg tablet (Vitamin B-12) docusate sodium 100 mg capsule 200 mg PO HS 10/18/22 01/20/23 History (Stool Softener) docusate sodium 100 mg capsule 300 mg PO QAM 10/18/22 01/20/23 History (Stool Softener) dulaglutide 1.5 mg/0.5 mL 1.5 mg subcut WK 10/18/22 01/20/23 History subcutaneous pen injector (Trulicity) inulin 2 gram chewable tablet 4 g PO QAM 10/18/22 01/20/23 History (Fiber Gummies) levothyroxine 50 mcg tablet 50 mcg PO QAM 10/18/22 01/20/23 History lisinopril 5 mg tablet 5 mg PO QAM 10/18/22 01/20/23 History magnesium oxide 400 mg PO HS 10/18/22 01/20/23 History metformin 1,000 mg tablet 1,000 mg PO BID 10/18/22 01/20/23 History omega-3 fatty acids-vitamin E 1 cap PO QAM 10/18/22 01/20/23 History 1,000 mg capsule riboflavin (vitamin B2) 100 mg 100 mg PO QPM 10/18/22 01/20/23 History tablet (Vitamin B-2) sertraline 100 mg tablet 100 mg PO QAM 01/10/23 04/14/23 History Past Med/Surg History Medical History (Updated 01/20/23 @ 16:53 by Star Hollingsworth MD) Anxiety Benign essential tremor Chronic kidney disease monitoring levels. CKD (chronic kidney disease), stage III Claustrophobia Depression Depression with anxiety Diabetes mellitus, type 2 niddm Dry cough Gastroesophageal reflux disease with esophagitis Gout History of anesthesia reaction awareness during hip surgery. HTN (hypertension) RIGHT Hx of closed fracture elbow/radius (2019) Hypercholesterolemia Hyperlipidemia Hypothyroidism Migraine rarely Surgical History History of cardiac cath no stents at [facility] ~2004 History of section EMERGENCY History of colonoscopy History of esophagogastroduodenoscopy (EGD) History of total hip arthroplasty right hip Status post trigger finger release THUMB Family History Other Cancer Diabetes Heart disease Hypertension No family history of adverse response to anesthesia Social History Smoking Status: Former smoker Cigarettes Per Day: QUIT 11 YEARS AGO; Second Hand Exposure: No; Do You Dip or Chew Tobacco: No; Tobacco Cessation Education Requested by Patient: No Hx Alcohol Use: Yes Alcohol type: wine Hx Substance Use: Yes Last Used Substance Other:: when teenager Substance Use Type Other:: marijuana Preferred Language: Slovak Communication Ability: Effective 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 Required: No Beliefs That Will Affect Care: None marital status: / Current Living Situation: Alone Current Living Situation Comment: 3 story home, lives in basement, has 2 large dogs current occupational status: employed Other Information That Helps Us Care for You: No Feels Safe at Home: Yes Safety Concerns: Feels Safe At This Time Assistive Devices: Glasses Review of Systems Review of Systems: As above in HPI, remaining ROS otherwise negative Physical Exam Physical Exam: No acute distress, non toxic, appears stated age ENMT: Normocephalic, atraumatic, mucous membrane moist Respiratory: Breathing comfortably on NC, no wheezing/rhonchi/rales Cardiovascular: Regular rate and rhythm, no murmurs/rubs/gallops Gastrointestinal (Abdomen): soft, non tender, non distended Musculoskeletal: bilateral ankle pain and swelling, no bruising noted, skin intact Neurologic: awake, alert, moving extremities Psychiatric: normal affect, speech linear, non pressured Results & Data Results & Data Vital Signs (Past 12 Hours) Vital Signs Temp Pulse Pulse Resp BP BP Pulse Ox 01/20/23 10:47 56 L 01/20/23 09:31 58 L 12 137/73 99 01/20/23 09:00 37.1 C 54 L 18 154/83 H 98 O2 Del Method O2 Flow Rate 01/20/23 10:47 01/20/23 09:31 Nasal Cannula 2 01/20/23 09:00 Room Air
[2023-01-20 11:06] LABS: Basophils # (auto) 0.03 K/uL (0-0.2); Basophils % (auto) 0.5 %; Eosinophils # (auto) 0.14 K/uL (0-0.50); Eosinophils % (auto) 2.2 %; Hematocrit (blood only) 34.1 % (37.0-47.0); Hemoglobin 11.2 g/dl (12.0-16.0); Immature Granulocytes # (auto) 0.01 K/uL (0.01-0.20); Immature Granulocytes % (auto) 0.2 %; Lymphocytes # (auto) 2.17 K/uL (1.2-3.4); Mean Corpuscular Hemoglobin 29.8 pg (25.0-34.0); Mean Corpuscular Hgb Conc 32.8 g/dL (32.0-36.0); Mean Corpuscular Volume 90.7 fL (80.0-100.0); Mean Platelet Volume 8.9 fL (9.4-12.4); Monocytes # (auto) 0.38 K/uL (0.11-0.59); Neutrophils # (auto) 3.65 K/uL (1.40-6.50); Neutrophils % (auto) 57.1 %; Platelet Count 197 K/uL (130-400); RDW Coefficient of Variation 14.6 % (11.5-14.5); RDW Standard Deviation 48.4 fL (36.4-46.3); Red Blood Count 3.76 M/uL (4.20-5.40); White Blood Count 6.38 K/ul (4.8-10.8)
[2023-01-20 11:32] LABS: Albumin Globulin Ratio 1.7 (0.9-2); Albumin Level 3.9 gm/dl (3.4-5.0); BUN Creatinine Ratio 21.6 (10-20); Bilirubin,Total 0.4 mg/dl (0.2-1.0); Creatinine Clr Calc Pharmacy 48.8 ml/min; Est GFR (African American) 57.2 ml/min; Est GFR (Non-African American) 49.4 ml/min; Globulin 2.3 gm/dl (2.5-4.0); Potassium 4.5 mmol/L (3.5-5.1); Total Protein 6.2 gm/dl (6.0-8.3)
[2023-01-20 11:48] LABS: Partial Thromboplastin Ratio 0.9; Partial Thromboplastin Time 25.4 Seconds (21.0-31.0); Prothrombin Time 10.4 Seconds (9.0-12.0)
--- NOTE | 2023-01-20 12:58 | Orthopedic Consultation ---
Date of Consultation January 20, 2023 Assessment & Plan (1) Bilateral ankle fractures: Evaluated patient and advised her that she will need surgical fixation for her right ankle fracture. Patient is agreement and informed consent to perform the procedure was obtained. I advised her that we will try to perform surgery tomorrow if there is time available in the operating room. I advised the patient and her family that Dr. Main will be up to see her later today to discuss surgical intervention. Patient being admitted to the hospital by the medical service and they will manage her diabetes as well as medication for DVT prophylaxis. History of Present Illness Reason for Consultation: Bilateral ankle fracture Requesting Physician: Kashmir Main MD Attending Physician: Percy Man MD History of Present Illness The patient is a 67year old female who presents to the Emergency Room with complaints of bilateral ankle pain after an accidental fall. This started this morning and is losing her balance while walking her dogs after they pulled her off a curb. The patient also notes the following associated symptoms, swelling of the ankles but more so on the right. The patient has taken no medication for relieving factors. Current pain is rated as 10/10. Patient denies any other injury. Patient was unable to walk so EMS was summoned. Pt denies LOC, headache, visual changes, neck pain, chest pain, breathing difficulties, nausea, vomiting, abdominal pain, back pain, other extremity pain, numbness, weakness, open wounds, active bleeding, or other complaints. Allergies Allergy/AdvReac Type Severity Reaction Status Date / Time No Known Allergies Allergy Verified 10/25/22 08:51 Home Medications Medication Instructions Recorded Confirmed Type aspirin 81 mg tablet,delayed 81 mg PO QAM 07/17/18 01/20/23 History release (Aspir-) blood sugar diagnostic (OneTouch #10 ea 05/17/19 12/03/19 Rx Ultra Blue Test Strip) lancets 30 gauge (OneTouch Delica #25 ea 05/17/19 12/03/19 Rx Lancets) atorvastatin 80 mg tablet (Lipitor) 80 mg PO QAM 07/04/20 01/20/23 History allopurinol 100 mg tablet 100 mg PO BID Gout #180 tabs 11/10/20 01/20/23 Rx (Zyloprim) Burn 1 tab PO QAM 10/18/22 01/20/23 History cholecalciferol (vitamin D3) 50 50 mcg PO QAM 10/18/22 01/20/23 History mcg (2,000 unit) capsule (Vitamin D3) cyanocobalamin (vitamin B-12) 1,000 mcg PO QPM 10/18/22 01/20/23 History 1,000 mcg tablet (Vitamin B-12) docusate sodium 100 mg capsule 200 mg PO HS 10/18/22 01/20/23 History (Stool Softener) docusate sodium 100 mg capsule 300 mg PO QAM 10/18/22 01/20/23 History (Stool Softener) dulaglutide 1.5 mg/0.5 mL 1.5 mg subcut WK 10/18/22 01/20/23 History subcutaneous pen injector (Trulicity) inulin 2 gram chewable tablet 4 g PO QAM 10/18/22 01/20/23 History (Fiber Gummies) levothyroxine 50 mcg tablet 50 mcg PO QAM 10/18/22 01/20/23 History lisinopril 5 mg tablet 5 mg PO QAM 10/18/22 01/20/23 History magnesium oxide 400 mg PO HS 10/18/22 01/20/23 History metformin 1,000 mg tablet 1,000 mg PO BID 10/18/22 01/20/23 History omega-3 fatty acids-vitamin E 1 cap PO QAM 10/18/22 01/20/23 History 1,000 mg capsule riboflavin (vitamin B2) 100 mg 100 mg PO QPM 10/18/22 01/20/23 History tablet (Vitamin B-2) sertraline 100 mg tablet 100 mg PO QAM 10/18/22 01/20/23 History Patient History Medical History Anxiety Benign essential tremor Chronic kidney disease monitoring levels. Claustrophobia Depression Diabetes mellitus, type 2 niddm Dry cough patient has had since 09/02/22, covid test was negative at [facility]. f/u with PCP, patient was to stop lisinopril for 1 week and to f/u next week -- patient reports she still has the cough. Gout History of anesthesia reaction awareness during hip surgery. HTN (hypertension) RIGHT Hx of closed fracture elbow/radius (2019) Hyperlipidemia Hypothyroidism Migraine rarely Surgical History History of cardiac cath no stents at [facility] ~2004 History of section EMERGENCY History of colonoscopy History of esophagogastroduodenoscopy (EGD) History of total hip arthroplasty right hip Status post trigger finger release THUMB Family History Other Cancer Diabetes Heart disease Hypertension No family history of adverse response to anesthesia Social History Smoking Status: Former smoker Cigarettes Per Day: QUIT 11 YEARS AGO; Second Hand Exposure: No; Hx Alcohol Use: Yes Alcohol type: wine Hx Substance Use: No Preferred Language: Kazakh Communication Ability: Effective Rn Examiner Required: No Beliefs That Will Affect Care: None marital status: / Current Living Situation: Alone current occupational status: employed Feels Safe at Home: Yes Assistive Devices: Cane, Glasses and Hearing Aid - Bilateral Review of Systems Review of Systems: All systems reviewed & are unremarkable except as noted in Subjective Physical Exam Physical Exam: Bilateral lower extremities: Patient has bilateral ankle fractures that are both splinted with posterior U Ortho-Glass splints. She states that the pain is worse in her right ankle than her left. Patient is able to perform an active straight leg raise test with both lower extremities. She is able to detect light sensation to touch over the pads of her digits in both feet. Knee range of motion in the right knee is limited to about 60 degrees of flexion. Patient is able to flex beyond 90 degrees in her left knee without difficulty or pain. She is neurovascularly intact and does have tenderness to palpation of the anterior aspect of both ankles with the splint is not covering. Results & Data Vital Signs (Past 12 Hours) Vital Signs Temp Pulse Pulse Resp BP BP Pulse Ox 01/20/23 10:47 56 L 01/20/23 09:31 58 L 12 137/73 99 01/20/23 09:00 37.1 C 54 L 18 154/83 H 98 O2 Del Method O2 Flow Rate 01/20/23 10:47 01/20/23 09:31 Nasal Cannula 2 01/20/23 09:00 Room Air Diagnostic Findings Laboratory Results WBC 6.38 K/ul (4.8-10.8) 01/20/23 10:39 RBC 3.76 M/uL (4.20-5.40) L 01/20/23 10:39 Hgb 11.2 g/dl (12.0-16.0) L 01/20/23 10:39 Hct 34.1 % (37.0-47.0) L 01/20/23 10:39 MCV 90.7 fL (80.0-100.0) 01/20/23 10:39 MCH 29.8 pg (25.0-34.0) 01/20/23 10:39 MCHC 32.8 g/dL (32.0-36.0) 01/20/23 10:39 RDW Std Deviation 48.4 fL (36.4-46.3) H 01/20/23 10:39 RDW Coeff of Pamela 14.6 % (11.5-14.5) H 01/20/23 10:39 Plt Count 197 K/uL (130-400) 01/20/23 10:39 MPV 8.9 fL (9.4-12.4) L 01/20/23 10:39 Immature Gran % (Auto) 0.2 % 01/20/23 10:39 Neut % (Auto) 57.1 % 01/20/23 10:39 Lymph % (Auto) 34.0 % 01/20/23 10:39 Weber % (Auto) 6.0 % 01/20/23 10:39 Eos % (Auto) 2.2 % 01/20/23 10:39 Baso % (Auto) 0.5 % 01/20/23 10:39 Neut # (Auto) 3.65 K/uL (1.40-6.50) 01/20/23 10:39 Lymph # (Auto) 2.17 K/uL (1.2-3.4) 01/20/23 10:39 Weber # (Auto) 0.38 K/uL (0.11-0.59) 01/20/23 10:39 Eos # (Auto) 0.14 K/uL (0-0.50) 01/20/23 10:39 Baso # (Auto) 0.03 K/uL (0-0.2) 01/20/23 10:39 Immature Gran # (Auto) 0.01 K/uL (0.01-0.20) 01/20/23 10:39 PT 10.4 Seconds (9.0-12.0) 01/20/23 10:39 INR 1.0 (0.9-1.1) 01/20/23 10:39 APTT 25.4 Seconds (21.0-31.0) 01/20/23 10:39 PTT Ratio 0.9 01/20/23 10:39 Sodium 141 mmol/L (136-145) 01/20/23 10:39 Potassium 4.5 mmol/L (3.5-5.1) 01/20/23 10:39 Chloride 108 mmol/L (98-107) H 01/20/23 10:39 Carbon Dioxide 28 mmol/L (21-32) 01/20/23 10:39 Anion Gap 5 (3-11) 01/20/23 10:39 BUN 25 mg/dl (6-23) H 01/20/23 10:39 Creatinine 1.16 mg/dl (0.6-1.2) 01/20/23 10:39 Est Cr Clr Drug Dosing 48.8 ml/min 01/20/23 10:39 Est GFR ( Amer) 57.2 ml/min 01/20/23 10:39 Est GFR (Non-Af Amer) 49.4 ml/min 01/20/23 10:39 BUN/Creatinine Ratio 21.6 (10-20) H 01/20/23 10:39 Glucose 103 mg/dl (70-99(Fasting)) H 01/20/23 10:39 Calcium 9.0 mg/dl (8.6-10.3) 01/20/23 10:39 Total Bilirubin 0.4 mg/dl (0.2-1.0) 01/20/23 10:39 AST 23 U/L (13-39) 01/20/23 10:39 ALT 18 U/L (7-52) 01/20/23 10:39 Alkaline Phosphatase 66 U/L (34-104) 01/20/23 10:39 Total Protein 6.2 gm/dl (6.0-8.3) 01/20/23 10:39 Albumin 3.9 gm/dl (3.4-5.0) 01/20/23 10:39 Globulin 2.3 gm/dl (2.5-4.0) L 01/20/23 10:39 Albumin/Globulin Ratio 1.7 (0.9-2) 01/20/23 10:39 SARS-CoV-2, RNA, NAAT NEGATIVE (NEGATIVE) 01/20/23 10:45 Impressions Ankle X-Ray 01/20/23 09:10 RIGHT ANKLE 3 VIEWS CLINICAL HISTORY: Fall with right ankle injury. FINDINGS: 3 views of the right ankle are obtained. No prior studies are available for comparison at the time of dictation. The skeletal structures are osteopenic. There is a displaced spiral fracture of the distal fibula. The fragments are offset by up to 4 mm. There is nondisplaced fracture through the medial malleolus, as well as a mildly displaced vertically oriented fracture through the posterior malleolus of the tibia. There is widening of the medial joint space, as well as mild anterior subluxation of the talus at the tibiotalar articulation. There is an ankle joint effusion. Soft tissue edema it is seen around the ankle. There is a plantar heel spur. IMPRESSION: 1. Trimalleolar fracture of the right ankle as above with associated joint effusion and soft tissue edema. 2. There is mild widening of the medial joint space as well as mild anterior subluxation of the talus at the tibiotalar articulation. Electronically signed by: West Gross M.D. 01/20/2023 10:14 AM
[2023-01-20] MEDS ORDERED: CARBOHYDRATES FOR HYPOGLYCEMIA PO PRN (13:50)
[2023-01-20] MEDS ORDERED: PHARMACY GLYCEMIC MGMT CONSULT PRN (13:50)
[2023-01-20] MEDS ORDERED: GLUCOSE 40% GEL 15 GM TUBE PO PRN (13:50)
[2023-01-20] MEDS ORDERED: oxyCODONE/ACETAMINOPHEN 5mg/325mg TAB PO PRN (13:50)
[2023-01-20] MEDS ORDERED: GLUCAGON FOR INJ 1 MG VIAL SQ PRN (13:50)
[2023-01-20] MEDS ORDERED: GLUCOSE 10 TAB/TUBE PO PRN (13:50)
[2023-01-20] MEDS ORDERED: ONDANSETRON INJ 2 MG/ML 2 ML VIAL IV PRN (13:50)
[2023-01-20] MEDS ORDERED: DEXTROSE 50% 50 ML SYRINGE IV PRN (13:50)
[2023-01-20] MEDS ORDERED: KETOROLAC TROMETHAMINE 15 MG/ML VIAL IV PRN (14:07)
[2023-01-20] MEDS: ACETAMINOPHEN 325 MG TAB PO SCH ×2 (14:16→20:58)
--- NOTE | 2023-01-20 14:30 | Pharmacy Report ---
Pharmacy Glycemic Short Note 2 - Date of Service January 20, 2023 - Glycemic Short BSG Results (Last 24 hours): 01/20/23 10:39 Glucose 103 H OUTPATIENT ANTIDIABETIC REGIMEN: * metformin 1000mg BID * Trulicity 1.5mg QFriday * HbA1c ordered for 01/21/23 ASSESSMENT: * Patrica Obrien is a 67 YOF admitted for fall/bilateral ankle fractures, with history of T2DM not insulin dependent. Pharmacy has been consulted for glycemic management while inpatient * Fasting BSG below goal this AM, will hold off on any basal insulin at this time * The patient will be NPO starting at midnight for fracture fixation of her ankle in the morning. * Novolog scale with a weight based stress of 2 started to cover glycemic needs. PLAN FOR INPATIENT GLYCEMIC CONTROL: * Hold outpatient oral diabetes medications * Basal insulin * no basal insulin at this time. * Bolus insulin * NovoLog per scale ACHS or Q6hrs while NPO * Goal Range: Low 110 mg/dL - High 140 mg/dL * Correction Factor: 30 mg/dL/unit * Nutritional / Prandial insulin per carb ratio of 1 unit per 11 grams CHO consumed
--- NOTE | 2023-01-20 15:16 | Anesthesiology Consultation ---
Date of Service January 20, 2023 Assessment & Plan Chart Review Chart Review: Acceptable Risk for Surgery Consults Requested none ASA ASA3 Proposed Anesthesia Anesthesia Type: General Regional Regional Laterality: Right Site: Popliteal and Saphenous Risk / Benefits Reviewed With: PT / POA / Parent / Guardian, Accepts Plan and Informed Consent Obtained History Surgery Operation Date: 01/21/23 07:30 Proposed Procedures p Left Open Reduction Internal Fixation Ankle - Kashmir Main MD Height/Weight Height: 5 ft 2 in Weight: 84.7 kg Allergies Allergy/AdvReac Type Severity Reaction Status Date / Time No Known Allergies Allergy Verified 10/25/22 08:51 Medications Home Medications Medication Instructions Recorded Confirmed Last Taken aspirin 81 mg tablet,delayed 81 mg PO QAM 07/17/18 01/20/23 01/19/23 release (Aspir-) blood sugar diagnostic (OneTouch #10 ea 05/17/19 12/03/19 Unknown Ultra Blue Test Strip) lancets 30 gauge (OneTouch Delica #25 ea 05/17/19 12/03/19 Unknown Lancets) atorvastatin 80 mg tablet (Lipitor) 80 mg PO QAM 07/04/20 01/20/23 01/19/23 allopurinol 100 mg tablet 100 mg PO BID Gout #180 tabs 11/10/20 01/20/23 01/19/23 (Zyloprim) Burn 1 tab PO QAM 10/18/22 01/20/23 01/19/23 cholecalciferol (vitamin D3) 50 50 mcg PO QAM 10/18/22 01/20/23 01/19/23 mcg (2,000 unit) capsule (Vitamin D3) cyanocobalamin (vitamin B-12) 1,000 mcg PO QPM 10/18/22 01/20/23 01/19/23 1,000 mcg tablet (Vitamin B-12) docusate sodium 100 mg capsule 200 mg PO HS 10/18/22 01/20/23 01/19/23 (Stool Softener) docusate sodium 100 mg capsule 300 mg PO QAM 10/18/22 01/20/23 01/19/23 (Stool Softener) dulaglutide 1.5 mg/0.5 mL 1.5 mg subcut WK 10/18/22 01/20/23 01/13/23 subcutaneous pen injector (Trulicity) inulin 2 gram chewable tablet 4 g PO QAM 10/18/22 01/20/23 01/19/23 (Fiber Gummies) levothyroxine 50 mcg tablet 50 mcg PO QAM 10/18/22 01/20/23 01/19/23 lisinopril 5 mg tablet 5 mg PO QAM 10/18/22 01/20/23 01/19/23 magnesium oxide 400 mg PO HS 10/18/22 01/20/23 01/19/23 metformin 1,000 mg tablet 1,000 mg PO BID 10/18/22 01/20/23 01/19/23 omega-3 fatty acids-vitamin E 1 cap PO QAM 10/18/22 01/20/23 01/19/23 1,000 mg capsule riboflavin (vitamin B2) 100 mg 100 mg PO QPM 10/18/22 01/20/23 01/19/23 tablet (Vitamin B-2) sertraline 100 mg tablet 100 mg PO QAM 10/18/22 01/20/23 01/19/23 Active Medications Generic Name Dose Route Start Last Admin Trade Name Freq PRN Reason Stop Dose Admin Acetaminophen 650 mg 01/20/23 14:00 01/20/23 20:58 Acetaminophen 325 Mg Tab PO 02/19/23 13:59 650 mg TID RADHA Administration Allopurinol 100 mg 01/20/23 21:00 01/20/23 19:29 Allopurinol 100 Mg Tab PO 02/19/23 20:59 100 mg BID RADHA Administration Docusate Sodium 100 mg 01/20/23 21:00 01/20/23 19:29 Docusate Sodium 100 Mg Cap PO 02/19/23 20:59 100 mg BID RADHA Administration Insulin Aspart 0 units 01/20/23 16:30 01/20/23 21:01 Insulin Aspart Per Unit Charge SC 02/19/23 16:29 Not Given ACHS RADHA Ketorolac Tromethamine 15 mg 01/20/23 14:07 01/20/23 14:16 Ketorolac Tromethamine 15 Mg/Ml Vial IV 01/25/23 14:06 15 mg Q6H PRN Administration Pain Levothyroxine Sodium 50 mcg 01/21/23 06:30 01/21/23 05:50 Levothyroxine Sodium 50 Mcg Tablet PO 02/20/23 06:29 50 mcg DAILYBB RADHA Administration Oxycodone/Acetaminophen 1 tab 01/20/23 13:50 01/20/23 17:52 Oxycodone/Acetaminophen 5mg/325mg Tab PO 02/03/23 13:49 1 tab Q4H PRN Administration Pain NPO Date Last Intake of Fluids: 01/20/23 Time Last Intake of Fluids: 20:00 Date Last Intake of Solids: 01/20/23 Time Last Intake of Solids: 20:00 Past Medical History Medical History Anxiety Benign essential tremor Chronic kidney disease monitoring levels. CKD (chronic kidney disease), stage III Claustrophobia Depression Depression with anxiety Diabetes mellitus, type 2 niddm Dry cough Gastroesophageal reflux disease with esophagitis Gout History of anesthesia reaction awareness during hip surgery. HTN (hypertension) RIGHT Hx of closed fracture elbow/radius (2019) Hypercholesterolemia Hyperlipidemia Hypothyroidism Migraine rarely Exercise / Class Metabolic Activity II 4-5 Yardwork/Stairs/Walk up hill Past Family History Family History Other Cancer Diabetes Heart disease Hypertension No family history of adverse response to anesthesia Past Surgical History Surgical History History of cardiac cath no stents at [facility] ~2004 History of section EMERGENCY History of colonoscopy History of esophagogastroduodenoscopy (EGD) History of total hip arthroplasty right hip Status post trigger finger release THUMB Past Anesthesia History No Hx of Anesthesia Complications and No Family Hx of Anesthesia Complications awareness during hip surgery in past spinal plus sedation History of PONV No Hx of PONV and No Hx of Motion Sickness Social History Smoking Status: Former smoker tobacco type: cigarettes Smoking cigarettes per day: QUIT 11 YEARS AGO Hx Alcohol Use: Yes Alcohol type: wine alcohol intake frequency: holidays/special occasions only Hx Substance Use: No substance use type: does not use Physical Exam Vital Signs Last Vital Signs Temp 37.0 C 01/21/23 03:50 Pulse 51 L 01/21/23 03:50 Resp 16 01/21/23 03:50 BP 107/72 01/21/23 03:50 Pulse Ox 95 01/21/23 03:50 O2 Del Method Room Air 01/21/23 03:50 O2 Flow Rate 2 04/14/23 14:20 ENMT Mouth: + chipped teeth (left upper front chipped); no TMJ abnormality Thyromental Distance: > or= 3.5 Finger Breadths Mallampati Class: II Neck normal visual inspection and trachea midline; neck extension not limited Respiratory normal respiratory effort Auscultation: lungs clear to auscultation bilaterally Cardiovascular Rate/Rhythm: regular rate and regular rhythm Heart Sounds: no murmur Musculoskeletal Spine: normal cervical ROM Extremities: full ROM of extremities Neurologic moves all extremities Psychiatric Orientation: alert and oriented x 3 Testing Laboratory Results 01/21/23 06:15 01/21/23 06:15 PT 10.4 Seconds (9.0-12.0) 01/20/23 10:39 INR 1.0 (0.9-1.1) 01/20/23 10:39 APTT 25.4 Seconds (21.0-31.0) 01/20/23 10:39 01/21/23 01/21/23 01/20/23 05:57 00:14 20:50 POC Glucose 91 92 82 Electrocardiogram Date: 01/20/23
[2023-01-20] MEDS: INSULIN ASPART PER UNIT CHARGE SC SCH ×2 (17:27→21:01)
[2023-01-20] MEDS: DOCUSATE SODIUM 100 MG CAP PO SCH (19:29)
[2023-01-20] MEDS: allopurinoL 100 MG TAB PO SCH (19:29)
[2023-01-21] MEDS: LEVOTHYROXINE SODIUM 50 MCG TABLET PO SCH (05:50)
[2023-01-21 06:58] LABS: Red Blood Count 3.41 M/uL (4.20-5.40); White Blood Count 5.51 K/ul (4.8-10.8)
[2023-01-21 06:59] LABS: Hematocrit (blood only) 31.5 % (37.0-47.0); Hemoglobin 10.4 g/dl (12.0-16.0); Mean Corpuscular Hemoglobin 30.5 pg (25.0-34.0); Mean Corpuscular Volume 92.4 fL (80.0-100.0); Mean Platelet Volume 8.8 fL (9.4-12.4); Platelet Count 178 K/uL (130-400); RDW Coefficient of Variation 14.8 % (11.5-14.5)
[2023-01-21] MEDS ORDERED: ROPIVACAINE 0.5% 5 MG/ML 30 ML VIAL ONE (07:09)
[2023-01-21] MEDS ORDERED: MIDAZOLAM HCL 1 MG/ML 2ML VIAL ONE (07:13)
[2023-01-21] MEDS ORDERED: ONDANSETRON INJ 2 MG/ML 2 ML VIAL ONE (07:13)
[2023-01-21] MEDS ORDERED: PROPOFOL IV EMULSION 10 MG/ML 20 ML VIAL IV ONE (07:13)
[2023-01-21] MEDS ORDERED: fentaNYL citrate PF 100 MCG/2 ML VIAL ONE ×2 (07:13→09:06)
[2023-01-21] MEDS ORDERED: DEXAMETHASONE SOD INJ 4 MG/ML VIAL ONE (07:13)
[2023-01-21] MEDS ORDERED: LIDOCAINE 2% MPF LOCAL 5 ML VIAL ONE (07:13)
[2023-01-21 07:18] LABS: BUN Creatinine Ratio 21.9 (10-20); Calcium 8.8 mg/dl (8.6-10.3); Creatinine Clr Calc Pharmacy 42.9 ml/min; Est GFR (African American) 50.8 ml/min; Est GFR (Non-African American) 43.8 ml/min; Potassium 4.6 mmol/L (3.5-5.1)
[2023-01-21] MEDS ORDERED: MEPERIDINE HCL 25 MG/ML CARP/VIAL IV PRN (07:20)
[2023-01-21] MEDS ORDERED: fentaNYL citrate PF 100 MCG/2 ML VIAL IV PRN (07:20)
[2023-01-21] MEDS ORDERED: ONDANSETRON INJ 2 MG/ML 2 ML VIAL IV PRN (07:20)
[2023-01-21] MEDS ORDERED: ATROPINE SULFATE 0.1 MG/ML 10ML SYR IV PRN (07:20)
[2023-01-21] MEDS ORDERED: MoRPHine SULFATE 10 MG/ML CARP/VIAL IV PRN (07:20)
[2023-01-21] MEDS ORDERED: ePHEDrine sulfate 50 MG/ML AMP IV PRN (07:20)
--- NOTE | 2023-01-21 07:36 | Electrocardiogram Report ---
Test Reason : Blood Pressure : / mmHG Vent. Rate : 053 BPM Atrial Rate : 053 BPM P-R Int : 156 ms QRS Dur : 084 ms QT Int : 466 ms P-R-T Axes : 061 029 052 degrees QTc Int : 437 ms Sinus bradycardia Low voltage QRS Abnormal ECG When compared with ECG of 19-MAR-2021 10:35, No significant change was found Confirmed by Kishor Encinas ([id number]) on 01/21/2023 7:36:05 AM Referred By: REFERRED SELF Confirmed By:Earnest Encinas
[2023-01-21] MEDS ORDERED: ceFAZolin 2,000 MG/15 ML IV PUSH IV ONE (07:55)
--- NOTE | 2023-01-21 08:05 | History & Physical Bridge Note ---
Date of Service January 21, 2023 History & Physical Bridge Note I have examined the patient, reviewed the History & Physical and in the interval since the performance of the History & Physical I have noted the following changes of clinical significance: no changes noted
[2023-01-21] MEDS ORDERED: METOCLOPRAMIDE HCL INJ 5 MG/ML 2 ML VIAL ONE (08:40)
[2023-01-21] MEDS ORDERED: GLYCOPYRROLATE 0.2 MG/ML VIAL ONE (08:50)
[2023-01-21 09:41] LABS: Estimated Average Glucose 137 mg/dl; Hemoglobin A1C 6.4 % (4.5-5.6)
--- NOTE | 2023-01-21 10:58 | Fluoroscopy Report ---
INTRAOPERATIVE RADIOGRAPHS CLINICAL HISTORY: Open reduction and internal fixation of the right ankle. Fluoro time: 48 seconds Ka,r: 0.95 mGy FINDINGS: 5 spot fluoroscopic views of the right ankle are correlated with radiographs dated 3. 2 cortical lag screws transfix a medial malleolar fracture. There as been buttress plate fixation along the lateral cortex of the distal fibula transfixing a spiral fracture. Near anatomic alignment is restored at the ankle joint. An additional cortical lag screw transfixes the fibular fracture frag ments. Overlying soft tissue edema is noted. The orthopedic hardware appears intact. IMPRESSION: Intraoperative images from open reduction and internal fixation of right ankle fractures as above. Electronically signed by: West Gross M.D. 01/21/2023 10:57 AM
--- NOTE | 2023-01-21 11:05 | Operative Report ---
Post Operative Report Pre & Post Diagnosis Operation Date: 01/21/23 07:30 Pre-Op Diagnosis: Right distal fibular fracture Post-Op Diagnosis: Right distal fibular fracture I identified the patient and participated in the time-out.: Yes Procedure Operation Date: 01/21/23 07:30 Actual Procedures p right Open Reduction Internal Fixation Ankle medial and lateral malleoli (Right) - Kashmir Main MD Surgeon Kashmir Main MD Service Cashier Mary Chen physicians custody assistant no resident or fellow available Estimated Blood Loss 10 Findings Consistent with Post-Op Diagnosis Specimens None Anesthesia Type General Regional Complications none Disposition Accompanied Patient To Recovery: No Disposition: Recovery Room Indications Clear cyst 67. She fell yesterday broke both of her ankles. The left ankle is a Apple a type fracture. Minor. She should be able to bear weight on it. The right ankle is a trimalleolar fracture without dislocation. I recommended ORIF and she agreed to proceed. Description of Procedure Informed consent obtained. Patient identified. She identified the operative site as the right ankle. I marked with my initials. Preoperative surgical timeout was performed. A preop dose of IV antibiotics was given. She was taken to the OR positioned supine on the operating room table. The anesthetic was administered. The leg was inspected preoperatively and found to be free of significant swelling breaks in the skin or blisters. The leg was prescribed and then prepped and draped in the usual sterile fashion. A nonsterile tourniquet was applied on the right thigh. A bump was placed under the right hip. DVT prophylaxis chemoprophylaxis postop. Fluoroscopic guidance utilized. Limb exsanguinated with the Esmarch. Tourniquet inflated 275 mmHg. The medial side was addressed first this was a nondisplaced medial malleolus fracture. Fluoroscopic guidance was utilized to identify the tip of the medial malleolus in both the anterior and posterior planes. I introduced a guidewire for the 4.0 cannulated screws percutaneously anteriorly. Using fluoroscopic guidance this was advanced through the central portion of the medial malleolus from its tip extending up parallel to the shaft of the tibia. Likewise about a centimeter posterior to this a second guidewire was introduced taking care to applied directly to the bone and parallel to the first. Incisions were then made over the guidewires once appropriate positioning was determined. Blunt dissection was performed down through the skin and subcutaneous tissues to the level of the bone. The tissue protector was introduced directly down onto the bone followed by the cannulated reamer. The near cortex was opened. 2 screws were then inserted of 44 mm in length. Long threads. This was done under fluoroscopic control. Good positioning of the screws and fractures was noted. This was then irrigated closed with a 3-0 Vicryl for the skin and hung. Attention was turned to the lateral side where a 20 cm lateral incision was made. There was abundant adipose tissue. Blunt dissection was performed down to the subcutaneous tissues. Proximally I identified the superficial peroneal nerve and dissected it free from the lateral compartment and retracted anteriorly. Subperiosteal exposure of the fracture was then performed. The periosteum was largely disrupted. Very thin. A long oblique fracture was noted. The distal 15 to 20 mm I think was an unstable fracture which was very thin anteriorly. I was able to reduce the fracture anatomically with a bone clamp. I then applied a 3.5 mm bicortical lag screw from proximal anterior to posterior distal across the fracture site. Fixation was initially adequate. I then took a 10 hole one third tubular plate and applied it to the lateral fibula. The proximal lateral fibula had a very sharp posterior inclination from its anterior part and had a very broad anterior surface. The plate was applied to the parallel to the top of this. In order to put the plate on I had to remove the bone clamp. The fracture was not rigidly stable with the screw in place. I inserted a pin across the fracture site from lateral to medial which improved the stability. I then took the plate pre-bent and applied to the lateral fibula. I put a 4 oh cancellous screw distally followed by a locking screw proximally. I then applied 2 more locking screws proximally and a additional locking screw distally and a unicortical 4 oh cancellous screw distally. The most distal hole did not have the right angulation for locking. The fracture was stable however it was slightly displaced a millimeter or 2 particularly at its anterior distal aspect where I think the anterior part of this distal fracture fragment was fractured and unstable. I do not think there is any viable way to fix this given the small piece of bone. I elected to proceed with some bone graft and I took some cortical cancellous granules and DBX and inserted into this small fracture gap which is about 15 mm long and 1 or 2 mm wide. Copious irrigation was performed. The tourniquet was let down and meticulous hemostasis was performed. The syndesmosis was stable to stressing. The syndesmotic ligaments could be directly visualized anteriorly. Mold Press Operator AP lateral and oblique images were obtained. The medial fixation was intact. The posterior fracture was anatomically aligned and there was no widening of the medial clear space or instability of the syndesmosis. The ankle was reduced. Laterally the plate and screws were in good position. The skin was then closed by using 0 Vicryl for the deep fatty layer protecting the superficial peroneal nerve. 3-0 Vicryl for the dermal layer followed by hung medially and laterally. The leg was cleaned wet and dry sponges and soft sterile dressing was applied Xeroform 4 x 4's ABD soft wrap and a posterior splint short leg with the ankle in neutral. Patient awakened from anesthesia without difficulty and taken to the recovery room in stable condition. There were no specimens or complications. Counts were correct and blood loss is estimated to be 10 cc. At the conclusion of the operation spoke to patient's daughter informed her of my findings. Postoperative operative instructions were given. She will be able to weight-bear as tolerated on her left lower extremity. She will be nonweightbearing on the right lower extremity. She will receive a routine course of postop IV antibiotics. PT and OT. She may need placement. Lovenox beginning 12 hours postop. Synthes hardware was utilized. A one third tubular distal fibular locking plate. I attest to the content of the Intraoperative Record and any orders documented therein. Any exceptions are noted below.
--- NOTE | 2023-01-21 11:22 | Operative Report ---
Post Operative Report Pre & Post Diagnosis Operation Date: 01/21/23 07:30 Pre-Op Diagnosis: Right distal fibular fracture Post-Op Diagnosis: Right distal fibular fracture I identified the patient and participated in the time-out.: Yes Procedure Operation Date: 01/21/23 07:30 Actual Procedures p right Open Reduction Internal Fixation Ankle(Right) - Kashmir Main MD Surgeon Dr. Kashmir Main Pull Tab Dealer Mary Chen physicians server service assistant no resident or fellow available Estimated Blood Loss 10 Findings Consistent with Post-Op Diagnosis Specimens none Anesthesia Type General Regional Complications none Description of Procedure Please refer to Dr. Main's post operative note. I was present during the procedure and assisted with retracting, wound closure, dressing and splint application. I assited w/ transfering the patient onto the liter post operatively. Pt left the room in stable condition. I attest to the content of the Intraoperative Record and any orders documented therein. Any exceptions are noted below.
[2023-01-21] MEDS ORDERED: HYDROmorphone INJ 0.5 MG/0.5 ML SYR IV PRN (11:50)
--- NOTE | 2023-01-21 12:04 | Anesthesiology Progress Note ---
Date of Service January 21, 2023 Anesthesia Post Procedure Vital Signs Vital Signs: Temp Pulse Pulse Resp BP BP Pulse Ox 01/21/23 11:45 36.5 C 56 L 20 145/51 H 96 01/21/23 11:35 49 L 14 131/70 100 01/21/23 11:25 49 L 12 141/74 H 100 01/21/23 11:15 57 L 14 123/97 100 01/21/23 11:05 36.2 C L 58 L 13 158/80 H 93 01/21/23 07:22 36.6 C 54 L 16 125/78 97 01/21/23 03:50 37.0 C 51 L 16 107/72 95 01/20/23 23:24 36.5 C 50 L 16 105/64 94 01/20/23 20:47 36.8 C 50 L 16 103/68 95 01/20/23 16:21 36.9 C 58 L 18 153/79 H 100 01/20/23 14:20 50 L 18 148/79 H 97 01/20/23 13:27 52 L 18 138/83 98 O2 Del Method O2 Flow Rate 01/21/23 11:45 Room Air 01/21/23 11:35 Oxymask 2 01/21/23 11:25 Oxymask 5 01/21/23 11:15 Oxymask 5 01/21/23 11:05 Room Air 01/21/23 07:22 Room Air 01/21/23 03:50 Room Air 01/20/23 23:24 Room Air 01/20/23 20:47 Room Air 01/20/23 16:21 Room Air 01/20/23 14:20 Nasal Cannula 2 01/20/23 13:27 Room Air Pain Intensity Bilateral Leg: Pain Intensity: 4 Right Ankle: Pain Intensity: 3 Transfer of Care Handoff Completed per policy Notes Mental Status: alert / awake / arousable Patient Amnestic to Procedure: Yes Nausea / Vomiting: adequately controlled Pain: adequately controlled Airway Patency, RR, SpO2: stable & adequate BP & HR: stable & adequate Hydration State: stable & adequate Anesthetic Complications: no major complications apparent and Pt Satisfied with anesthetic care
[2023-01-21] MEDS: INSULIN ASPART PER UNIT CHARGE SC SCH ×4 (12:07→21:16)
[2023-01-21] MEDS: SERTRALINE HCL 100 MG TABLET PO SCH (12:10)
[2023-01-21] MEDS: CHOLECALCIFEROL 1,000 UNITS 25 MCG TAB PO SCH (12:10)
[2023-01-21] MEDS: allopurinoL 100 MG TAB PO SCH ×2 (12:10→20:19)
[2023-01-21] MEDS: ATORVASTATIN 40 MG TAB PO SCH (12:10)
[2023-01-21] MEDS: lisinopril 5 MG TAB PO SCH (12:10)
[2023-01-21] MEDS: DOCUSATE SODIUM 100 MG CAP PO SCH ×2 (12:10→20:19)
[2023-01-21] MEDS: ACETAMINOPHEN 325 MG TAB PO SCH ×3 (12:10→20:19)
--- NOTE | 2023-01-21 12:31 | Hospitalist Progress Note ---
Date of Service January 21, 2023 Assessment & Plan (1) Acute right ankle pain: (2) Acute left ankle pain: (3) Accidental fall: Plan: Patient presented to the ED after mechanical fall suffered when she was walking her dogs Found to have bilateral ankle fractures Discussed with orthopedics; recommend ORIF of right ankle. Left ankle to be managed conservatively Status post ORIF of right ankle on 01/21 PT OT Pain control DVT prophylaxis with Lovenox (4) Vitamin D insufficiency: Plan: Continue supplement (5) Migraine headache: Plan: None currently (6) Hypercholesterolemia: Plan: Continue statin (7) Depression with anxiety: Plan: Continue sertraline (8) CKD (chronic kidney disease), stage III: Plan: Labs personally reviewed from today; creatinine at baseline. (9) Benign essential hypertension: Plan: Continue lisinopril with hold parameters (10) DM (diabetes mellitus): Plan: Not on insulin, hold metformin Correctional scale insulin while here Glycemic pharmacy consult A1c of 6.4%; (11) Gout: Plan: continue allopurinol Plan DVT ppx Lovenox Admission and Anticipated Discharge Date Admission Date: January 20, 2023 Subjective Patient seen and examined after the operation. She reports pain on bilateral ankle; well controlled on current medication. She denies any fever, chills, chest pain or shortness of breath. Review of Systems Review of Systems: All systems reviewed & are unremarkable except as noted in Subjective Physical Exam Physical Exam: Constitutional: WD/WN, vitals as above, NAD, sitting up in bed, pleasant, conversing easily Respiratory: normal respiratory effort, lungs clear to auscultation, no wheeze, rales, rhonchi. Normal insp/exp effort, no accessory muscle use Cardiovascular: RRR, no murmur, no edema Vessels: no JVD or carotid bruit Chest: normal inspection of chest Abdomen: normal bowel sounds, soft, nontender, no hepatosplenomegaly Musculoskeletal: Bilateral ankle wrapped in bandages. Able to wiggle her toes. Skin: no rashes, warm and dry normal turgor Neurologic: PERRL, EOMI, accommodation nl, no face palsy, no dysarthria CN's II- XI intact bilaterally and moves all extremities Psychiatric: A+Ox3, euthymic affect Lymphatic: no cervical or axillary lymphadenopathy : deferred Results & Data Results & Data Vital Signs (Past 12 Hours) Vital Signs Temp Pulse Pulse Resp BP BP Pulse Ox 01/21/23 12:05 36.9 C 54 L 16 120/78 94 01/21/23 11:45 36.5 C 56 L 20 145/51 H 96 01/21/23 11:35 49 L 14 131/70 100 01/21/23 11:25 49 L 12 141/74 H 100 01/21/23 11:15 57 L 14 123/97 100 01/21/23 11:05 36.2 C L 58 L 13 158/80 H 93 01/21/23 07:22 36.6 C 54 L 16 125/78 97 01/21/23 03:50 37.0 C 51 L 16 107/72 95 O2 Del Method O2 Flow Rate 01/21/23 12:05 Room Air 01/21/23 11:45 Room Air 01/21/23 11:35 Oxymask 2 01/21/23 11:25 Oxymask 5 01/21/23 11:15 Oxymask 5 01/21/23 11:05 Room Air 01/21/23 07:22 Room Air 01/21/23 03:50 Room Air Laboratory Results Laboratory Results WBC 5.51 K/ul (4.8-10.8) 01/21/23 06:15 RBC 3.41 M/uL (4.20-5.40) L 01/21/23 06:15 Hgb 10.4 g/dl (12.0-16.0) L 01/21/23 06:15 Hct 31.5 % (37.0-47.0) L 01/21/23 06:15 MCV 92.4 fL (80.0-100.0) 01/21/23 06:15 MCH 30.5 pg (25.0-34.0) 01/21/23 06:15 MCHC 33.0 g/dL (32.0-36.0) 01/21/23 06:15 RDW Std Deviation 50.0 fL (36.4-46.3) H 01/21/23 06:15 RDW Coeff of Pamela 14.8 % (11.5-14.5) H 01/21/23 06:15 Plt Count 178 K/uL (130-400) 01/21/23 06:15 MPV 8.8 fL (9.4-12.4) L 01/21/23 06:15 Immature Gran % (Auto) 0.2 % 01/20/23 10:39 Neut % (Auto) 57.1 % 01/20/23 10:39 Lymph % (Auto) 34.0 % 01/20/23 10:39 Mckean % (Auto) 6.0 % 01/20/23 10:39 Eos % (Auto) 2.2 % 01/20/23 10:39 Baso % (Auto) 0.5 % 01/20/23 10:39 Neut # (Auto) 3.65 K/uL (1.40-6.50) 01/20/23 10:39 Lymph # (Auto) 2.17 K/uL (1.2-3.4) 01/20/23 10:39 Mckean # (Auto) 0.38 K/uL (0.11-0.59) 01/20/23 10:39 Eos # (Auto) 0.14 K/uL (0-0.50) 01/20/23 10:39 Baso # (Auto) 0.03 K/uL (0-0.2) 01/20/23 10:39 Immature Gran # (Auto) 0.01 K/uL (0.01-0.20) 01/20/23 10:39 PT 10.4 Seconds (9.0-12.0) 01/20/23 10:39 INR 1.0 (0.9-1.1) 01/20/23 10:39 APTT 25.4 Seconds (21.0-31.0) 01/20/23 10:39 PTT Ratio 0.9 01/20/23 10:39 Sodium 140 mmol/L (136-145) 01/21/23 06:15 Potassium 4.6 mmol/L (3.5-5.1) 01/21/23 06:15 Chloride 108 mmol/L (98-107) H 01/21/23 06:15 Carbon Dioxide 28 mmol/L (21-32) 01/21/23 06:15 Anion Gap 4 (3-11) 01/21/23 06:15 BUN 28 mg/dl (6-23) H 01/21/23 06:15 Creatinine 1.28 mg/dl (0.6-1.2) H 01/21/23 06:15 Est Cr Clr Drug Dosing 42.9 ml/min 01/21/23 06:15 Est GFR ( Amer) 50.8 ml/min 01/21/23 06:15 Est GFR (Non-Af Amer) 43.8 ml/min 01/21/23 06:15 BUN/Creatinine Ratio 21.9 (10-20) H 01/21/23 06:15 Glucose 99 mg/dl (70-99(Fasting)) 01/21/23 06:15 POC Glucose 103 mg/dl (70-99) H 01/21/23 12:19 Estimat Average Glucose 137 mg/dl 01/21/23 06:15 Hemoglobin A1c 6.4 % (4.5-5.6) H 01/21/23 06:15 Calcium 8.8 mg/dl (8.6-10.3) 01/21/23 06:15 Total Bilirubin 0.4 mg/dl (0.2-1.0) 01/20/23 10:39 AST 23 U/L (13-39) 01/20/23 10:39 ALT 18 U/L (7-52) 01/20/23 10:39 Alkaline Phosphatase 66 U/L (34-104) 01/20/23 10:39 Total Protein 6.2 gm/dl (6.0-8.3) 01/20/23 10:39 Albumin 3.9 gm/dl (3.4-5.0) 01/20/23 10:39 Globulin 2.3 gm/dl (2.5-4.0) L 01/20/23 10:39 Albumin/Globulin Ratio 1.7 (0.9-2) 01/20/23 10:39 25-OH Vitamin D Total 38.9 ng/ml (30-100) 01/21/23 06:15 SARS-CoV-2, RNA, NAAT NEGATIVE (NEGATIVE) 01/20/23 10:45 Impressions Ankle X-Ray 01/21/23 00:00 INTRAOPERATIVE RADIOGRAPHS CLINICAL HISTORY: Open reduction and internal fixation of the right ankle. Fluoro time: 48 seconds Ka,r: 0.95 mGy FINDINGS: 5 spot fluoroscopic views of the right ankle are correlated with radiographs dated 01/20/2023. 2 cortical lag screws transfix a medial malleolar fracture. There as been buttress plate fixation along the lateral cortex of the distal fibula transfixing a spiral fracture. Near anatomic alignment is restored at the ankle joint. An additional cortical lag screw transfixes the fibular fracture fragments. Overlying soft tissue edema is noted. The orthopedic hardware appears intact. IMPRESSION: Intraoperative images from open reduction and internal fixation of right ankle fractures as above. Electronically signed by: West Gross M.D. 01/21/2023 10:57 AM
--- NOTE | 2023-01-21 14:08 | Pharmacy Report ---
Pharmacy Glycemic Short Note 2 - Date of Service January 21, 2023 - Glycemic Short BSG Results (Last 24 hours): 01/20/23 01/20/23 01/21/23 16:59 20:50 00:14 Glucose POC Glucose 106 H 82 92 01/21/23 01/21/23 01/21/23 05:57 06:15 11:14 Glucose 99 POC Glucose 91 123 H 01/21/23 12:19 Glucose POC Glucose 103 H OUTPATIENT ANTIDIABETIC REGIMEN: * metformin 1000mg BID * Trulicity 1.5mg QFriday * HbA1c = 6.4% ASSESSMENT: 01/21: * Patient is s/p right Open Reduction Internal Fixation of right ankle * Dexamethasone IV pulled from [facility] during procedure. Unable to confirm if patient received a dose. Post-op BSG of 103 mg/dL seems to indicated that steroid was not administered. * Fasting BSG of 91 mg/dL. Continue to hold basal insulin. 01/20: * Patrica bOrien is a 67 YOF admitted for fall/bilateral ankle fractures, with history of T2DM not insulin dependent. Pharmacy has been consulted for glycemic management while inpatient * Fasting BSG below goal this AM, will hold off on any basal insulin at this time * The patient will be NPO starting at midnight for fracture fixation of her ankle in the morning. * Novolog scale with a weight based stress of 2 started to cover glycemic needs. PLAN FOR INPATIENT GLYCEMIC CONTROL: * Hold outpatient oral diabetes medications * Basal insulin * no basal insulin at this time. * Bolus insulin * NovoLog per scale ACHS or Q6hrs while NPO * Goal Range: Low 110 mg/dL - High 140 mg/dL * Correction Factor: 30 mg/dL/unit * Nutritional / Prandial insulin per carb ratio of 1 unit per 10 grams CHO consumed
[2023-01-21] MEDS: ceFAZolin 2000MG 2,000 MG/15 ML SYR IV SCH ×2 (15:00→23:35)
--- NOTE | 2023-01-21 17:30 | Orthopedic Progress Note ---
Date of Service January 21, 2023 Assessment & Plan (1) Closed trimalleolar fracture of right ankle: Plan: Pt is POD#0 Her pain is controlled at this time . Continue with pain medication, using the lesser potency that controls her pain Continue with ice to the RLE and may apply to the LLE prn. PT/OT ordered NO weightbearing on the right LE , May do full weightbearing on the left LE using aircast splint May remove the splint on the LLE to groom. Lovenox 30mg BID starting tonight at 22:00 for DVT prophylaxis Anticipate d/c to rehab vs family dependent on response to therapy and safety. Present on Admission?: Yes (2) Closed left fibular fracture: Plan: see above. May WBAT with airsplint cast. Present on Admission?: Yes Admission and Anticipated Discharge Date Admission Date: January 20, 2023 Subjective Patient is POD #0 s/p a right Open Reduction Internal Fixation Ankle with Dr. Main today. She was seen bedside this pm. She is alert and oriented x3 in good spirits. She states she doesn't have pain in the right ankle. She states the foot still feels numb. She c/o pain and irritation from the splint on the left LE. She reports she was able to eat lunch. Denies any vomiting or nausea. She denies any CP, SOB. She offers no concerns. Review of Systems Review of Systems: Please refer to HPI Physical Exam Physical Exam: General: Pt is alert and oriented x3 pleasant and conversive. Musculoskeletal: skin is normal in color and normal in temperature on the right. She is able to move toes slightly. Capillary refill is < 2seconds. She is able to lift the right leg off the bed. The splint was removed from the left lower extremity. She has mild tenderness over the latera aspect of the left ankle over the distal fibula.She is able to actively DF and PF ankle strength is intact over the LLE. DP 2+. I applied a aircast splint for the LLE. Results & Data Vital Signs (Past 12 Hours) Vital Signs Temp Pulse Pulse Resp BP BP Pulse Ox 01/21/23 15:01 36.5 C 55 L 16 101/69 96 01/21/23 14:05 36.5 C 54 L 16 100/66 94 01/21/23 13:05 36.6 C 55 L 16 104/68 100 01/21/23 12:33 36.5 C 54 L 16 113/69 100 01/21/23 12:05 36.9 C 54 L 16 120/78 94 01/21/23 11:45 36.5 C 56 L 20 145/51 H 96 01/21/23 11:35 49 L 14 131/70 100 01/21/23 11:25 49 L 12 141/74 H 100 01/21/23 11:15 57 L 14 123/97 100 01/21/23 11:05 36.2 C L 58 L 13 158/80 H 93 01/21/23 07:22 36.6 C 54 L 16 125/78 97 O2 Del Method O2 Flow Rate 01/21/23 15:01 Room Air 01/21/23 14:05 Room Air 01/21/23 13:05 Room Air 01/21/23 12:33 Room Air 01/21/23 12:05 Room Air 01/21/23 11:45 Room Air 01/21/23 11:35 Oxymask 2 01/21/23 11:25 Oxymask 5 01/21/23 11:15 Oxymask 5 01/21/23 11:05 Room Air 01/21/23 07:22 Room Air
[2023-01-21] MEDS: ENOXAPARIN INJ 30 MG/0.3 ML SYR SQ SCH (20:20)
[2023-01-21] MEDS: oxyCODONE HCL IR 5 MG TAB (IMMEDIATE RELEASE) PO PRN (21:15)
[2023-01-22] MEDS: LEVOTHYROXINE SODIUM 50 MCG TABLET PO SCH (05:35)
[2023-01-22 06:11] LABS: Albumin Globulin Ratio 1.5 (0.9-2); Albumin Level 3.4 gm/dl (3.4-5.0); BUN Creatinine Ratio 22.1 (10-20); Bilirubin,Total 0.3 mg/dl (0.2-1.0); Calcium 8.7 mg/dl (8.6-10.3); Est GFR (African American) 53.8 ml/min; Est GFR (Non-African American) 46.5 ml/min; Globulin 2.2 gm/dl (2.5-4.0); Potassium 4.3 mmol/L (3.5-5.1); Total Protein 5.6 gm/dl (6.0-8.3)
[2023-01-22 06:13] LABS: Basophils # (auto) 0.03 K/uL (0-0.2); Basophils % (auto) 0.4 %; Eosinophils # (auto) 0.09 K/uL (0-0.50); Eosinophils % (auto) 1.1 %; Hematocrit (blood only) 30.2 % (37.0-47.0); Hemoglobin 9.8 g/dl (12.0-16.0); Immature Granulocytes # (auto) 0.02 K/uL (0.01-0.20); Immature Granulocytes % (auto) 0.3 %; Lymphocytes # (auto) 3.47 K/uL (1.2-3.4); Lymphocytes % (auto) 44.3 %; Mean Corpuscular Hemoglobin 29.7 pg (25.0-34.0); Mean Corpuscular Hgb Conc 32.5 g/dL (32.0-36.0); Mean Corpuscular Volume 91.5 fL (80.0-100.0); Mean Platelet Volume 9.3 fL (9.4-12.4); Monocytes # (auto) 0.57 K/uL (0.11-0.59); Monocytes % (auto) 7.3 %; Neutrophils # (auto) 3.65 K/uL (1.40-6.50); Neutrophils % (auto) 46.6 %; Platelet Count 170 K/uL (130-400); RDW Coefficient of Variation 14.6 % (11.5-14.5); RDW Standard Deviation 48.9 fL (36.4-46.3); White Blood Count 7.83 K/ul (4.8-10.8)
[2023-01-22] MEDS: ATORVASTATIN 40 MG TAB PO SCH (07:40)
[2023-01-22] MEDS: ACETAMINOPHEN 325 MG TAB PO SCH ×3 (07:41→20:04)
[2023-01-22] MEDS: allopurinoL 100 MG TAB PO SCH ×2 (07:41→20:04)
[2023-01-22] MEDS: DOCUSATE SODIUM 100 MG CAP PO SCH ×2 (07:41→20:04)
[2023-01-22] MEDS: SERTRALINE HCL 100 MG TABLET PO SCH (07:41)
[2023-01-22] MEDS: lisinopril 5 MG TAB PO SCH (07:42)
[2023-01-22] MEDS: CHOLECALCIFEROL 1,000 UNITS 25 MCG TAB PO SCH (07:42)
[2023-01-22] MEDS: ASPIRIN 81 MG ECTAB PO SCH (07:42)
[2023-01-22] MEDS: INSULIN ASPART PER UNIT CHARGE SC SCH ×4 (08:35→21:12)
[2023-01-22] MEDS: ENOXAPARIN INJ 30 MG/0.3 ML SYR SQ SCH ×2 (08:36→20:05)
--- NOTE | 2023-01-22 09:11 | XRay Report ---
RIGHT KNEE 3 VIEWS CLINICAL HISTORY: Right knee pain. FINDINGS: AP, crosstable lateral, and sunrise views of the right knee are obtained. No prior studies are available for comparison at the time of dictation. The skeletal structures are osteopenic. No fra cture is seen. There is minimal degenerative joint space narrowing. No joint effusion is identified. The overlying soft tissues are within normal limits. IMPRESSION: No no acute bony abnormality is identified. Electronically signed by: West Gross M.D. 01/22/2023 9:10 AM
--- NOTE | 2023-01-22 09:20 | Progress Notes ---
DATE OF SERVICE: 01/22/2023. Eating breakfast. Resting comfortably in bed. Pain is a 3/10 in the right ankle. She was able to g et up with PT and ambulate with a walker. She is afebrile. Her vital signs are stable. Her vitamin D level is within normal limits. Labs tod ay, white count of 8, hemoglobin 10, hematocrit 30, platelets 170, PRP is noted with mild renal insuf ficiency. Vitamin D 33. On exam, she complains of some right knee pain. She had to crawl on her knees to get back to her veh icle. She has an intact straight leg raise of the right knee. She can bend her knee from about 0-70 degrees, which is limited by her position in bed. The knee is not swollen or bruised. She has tend erness over the kneecap area. Nothing on the sides of the knee. Examination of the left ankle reveals minimal swelling, 1+ DP pulse. Intact sensation. She can wigg le her toes and flex and extend the toes and ankle with normal or nearly normal strength. Eversion o f the foot causes pain. She is in the ankle air-stirrup brace. Examination of the right lower extremity reveals she had a 2+ palpable DP pulse. Capillary refill le ss than 2 seconds. She has 5-/5 toe extension strength, but she has weakness on plantar flexion of t he big toe and lesser toes. She can plantarflex with gravity back to neutral. She reports intact se nsation on the top and bottom of her foot, but there is some tingling in her toes. Splint intact. IMPRESSION: 1. Left ankle Apple A type fracture. 2. Right ankle trimalleolar fracture, status post open reduction internal fixation. 3. Right knee pain. PLAN: Findings are discussed. She may weightbear as tolerated on her left leg. Ankle air-stirrup b race. We will get her some Tubigrip to help with swelling. Discontinue the Hall. Knee pain is likely related to crawling on her knee. She does not recall any specific injury. We wi ll go ahead and get x-rays of the right knee. In regards to the right ankle, we will continue to monitor. The weakness could be positional or rela itzel to ongoing effects from her peripheral nerve block. I discussed with her the results of the surg ical procedure. Her bone quality was poor. She has never had a bone health workup before and will n eed a DEXA scan as an outpatient. I discussed with her that due to bone conditions, cadaver bone gra ft/allograft was used to help supplement fracture healing and fixation. We will continue elevation, icing, nonweightbearing on the right. She will likely need a skilled [facility] facility or acute care rehab. Continue Lovenox for DVT prophylaxis. Job ID: [id number]
[2023-01-22] MEDS: oxyCODONE HCL IR 5 MG TAB (IMMEDIATE RELEASE) PO PRN ×2 (11:31→16:10)
--- NOTE | 2023-01-22 13:02 | Hospitalist Progress Note ---
Date of Service January 22, 2023 Assessment & Plan (1) Acute right ankle pain: (2) Acute left ankle pain: (3) Accidental fall: Plan: Patient presented to the ED after mechanical fall suffered when she was walking her dogs Found to have bilateral ankle fractures Discussed with orthopedics; recommend ORIF of right ankle. Left ankle to be managed conservatively Status post ORIF of right ankle on 01/21 PT OT; nonweightbearing on the right. Weight-bear as tolerated on left leg Pain control DVT prophylaxis with Lovenox Discontinue Hall (4) Vitamin D insufficiency: Plan: Continue supplement Vitamin D level is 33 (5) Migraine headache: Plan: None currently (6) Hypercholesterolemia: Plan: Continue statin (7) Depression with anxiety: Plan: Continue sertraline (8) CKD (chronic kidney disease), stage III: Plan: Labs personally reviewed from today; creatinine at baseline. (9) Benign essential hypertension: Plan: Continue lisinopril with hold parameters (10) DM (diabetes mellitus): Plan: Not on insulin, hold metformin Correctional scale insulin while here Glycemic pharmacy consult A1c of 6.4%; (11) Gout: Plan: continue allopurinol Plan DVT ppx Lovenox Dispopending PT OT evaluation(. Patient wants to go to rehab and then to her daughter's home after discharge from rehab. Please note the above document was generated using voice recognition software. It may contain grammatical, syntax or spelling errors. Any formal questions or concerns about the content, text or information contained within the body of this dictation should be directly addressed to the provider for clarification Admission and Anticipated Discharge Date Admission Date: January 20, 2023 Subjective Patient seen and examined at bedside. She reports that her pain is much better compared to yesterday. She is passing gas; no bowel movement yet. Denies any fever or chills. Physical Exam Physical Exam: Constitutional: WD/WN, vitals as above, NAD, sitting up in bed, pleasant, conversing easily Respiratory: normal respiratory effort, lungs clear to auscultation, no wheeze, rales, rhonchi. Normal insp/exp effort, no accessory muscle use Cardiovascular: RRR, no murmur, no edema Vessels: no JVD or carotid bruit Chest: normal inspection of chest Abdomen: normal bowel sounds, soft, nontender, no hepatosplenomegaly Musculoskeletal: Bilateral ankle wrapped in bandages. Able to wiggle her toes. Skin: no rashes, warm and dry normal turgor Neurologic: PERRL, EOMI, accommodation nl, no face palsy, no dysarthria CN's II- XI intact bilaterally and moves all extremities Psychiatric: A+Ox3, euthymic affect Lymphatic: no cervical or axillary lymphadenopathy : deferred Results & Data Results & Data Vital Signs (Past 12 Hours) Vital Signs Temp Pulse Resp BP Pulse Ox O2 Del Method O2 Flow Rate 01/22/23 08:42 100 Room Air 01/22/23 07:15 36.7 C 52 L 16 107/69 98 Nasal Cannula 2 01/22/23 04:17 36.5 C 52 L 16 101/65 99 Nasal Cannula 2
[2023-01-22] MEDS: traMADol HCL 50 MG TABLET PO PRN (16:40)
[2023-01-23] MEDS: oxyCODONE HCL IR 5 MG TAB (IMMEDIATE RELEASE) PO PRN (03:36)
[2023-01-23] MEDS: LEVOTHYROXINE SODIUM 50 MCG TABLET PO SCH (05:57)
[2023-01-23] MEDS: ACETAMINOPHEN 325 MG TAB PO SCH ×3 (07:27→20:57)
[2023-01-23] MEDS: ASPIRIN 81 MG ECTAB PO SCH (07:28)
[2023-01-23] MEDS: allopurinoL 100 MG TAB PO SCH ×2 (07:28→20:57)
[2023-01-23] MEDS: ATORVASTATIN 40 MG TAB PO SCH (07:28)
[2023-01-23] MEDS: CHOLECALCIFEROL 1,000 UNITS 25 MCG TAB PO SCH (07:29)
[2023-01-23] MEDS: lisinopril 5 MG TAB PO SCH (07:30)
[2023-01-23] MEDS: SERTRALINE HCL 100 MG TABLET PO SCH (07:30)
[2023-01-23] MEDS: DOCUSATE SODIUM 100 MG CAP PO SCH (07:30)
--- NOTE | 2023-01-23 08:08 | Pharmacy Report ---
Glycemic Ortho Sign Off Note - Date of Service January 23, 2023 - Scope Glycemic Pharmacist consulted for glycemic control and to write orders per [facility] inpatient glycemic control protocol. - Objective Accuchecks BSG (last 24hrs):: 01/22/23 01/22/23 01/22/23 12:02 16:55 21:08 POC Glucose 83 105 H 114 H 01/23/23 08:00 POC Glucose 97 HbA1c:: Hemoglobin A1c 6.4 % (4.5-5.6) H 01/21/23 06:15 - Assessment * Pt is maintained on oral antidiabeticagentsas anoutpatient with excellent control per recent A1c * Oral agents are not recommended for inpatient use d/t drug interactions, changing PO intake, and difficulty titrating for acute hyper/hypoglycemia. * Recommended regimen for inpatient use is SQ insulin * Low stress weight based insulin dosing appropriate since patient has minimal risk factors for insulin resistance (i.e. no steroids). * Appropriate to DC insulin and resume outpatient antidiabetic regimen at discharge * Goal is to maintain BSGs <200 mg/dl (ideally <150 mg/dl) to prevent post op complications - Plan For Inpatient Glycemic Control * Basal insulin * Not needed based on A1c, pre-op BSGs, and minimal risk factors for insulin resistance * Bolus insulin * Utilize low stress weight based NovoLog parameters per scale ACHS * Pharmacy has entered glycemic orders and is signing off of the glycemic consult. We will no longer be making adjustments to inpatient regimen. Please feel free to re-consult if needed. Thank you.
[2023-01-23] MEDS: INSULIN ASPART PER UNIT CHARGE SC SCH ×4 (08:09→20:38)
[2023-01-23] MEDS: traMADol HCL 50 MG TABLET PO PRN ×2 (09:18→18:44)
[2023-01-23] MEDS: ENOXAPARIN INJ 30 MG/0.3 ML SYR SQ SCH ×2 (09:19→20:58)
--- NOTE | 2023-01-23 10:45 | Progress Notes ---
DATE OF SERVICE: 01/23/2023 Up with PT. Took a few steps. Able to bear weight on the left. Otherwise, doing well. Pain is wel l controlled in the right ankle. She is afebrile. Her vital signs are stable. She has no new signi ficant labs today. X-rays of her right knee done yesterday show no evidence of fracture or arthritis . The report is noted. The left ankle is in an air-stirrup splint. The right ankle splint is removed. Her skin is intact. There is no blistering. Swelling is mild to moderate. She has intact sensation throughout the foot and ankle. Capillary refill less than 2 seconds. DP pulses 1+. Ankle and toe plantar flexion, dors iflexion and eversion is 5-/5. Redressed with Xeroform, 4 x 4s, ABD, including the heel. Abundant c ast padding, and a posterior splint. IMPRESSION: 1. Right ankle trimalleolar fracture, status post ORIF of bimalleolar component. 2. Apple A fracture of the left ankle, nonoperative. PLAN: She may weightbear as tolerated on the left. Ankle air-stirrup brace. Recommend acute care r ehab or custodial facility. She is nonweightbearing on the right for a period of at least 4 to 6 weeks. She will need Lovenox for DVT prophylaxis. Vitamin D within normal limits. She will need a bone health workup as an outpatient. Job ID: [id number]
--- NOTE | 2023-01-23 12:19 | Hospitalist Progress Note ---
Date of Service January 23, 2023 Assessment & Plan (1) Acute right ankle pain: (2) Acute left ankle pain: (3) Accidental fall: (4) Vitamin D insufficiency: (5) Migraine headache: (6) Hypercholesterolemia: (7) Depression with anxiety: (8) CKD (chronic kidney disease), stage III: (9) Benign essential hypertension: (10) DM (diabetes mellitus): (11) Gout: Plan This is a 67-year-old female who has a significant past medical history of HTN, HLD, CKD stage III, T2DM and depression with anxiety who presented to ED on 01/20/2023 after sustaining a mechanical fall. She sustained a right trimalleolar fracture with a mildly comminuted lateral malleolus fracture and a nondisplaced medial malleoli fracture. Her left ankle suffered a Apple type a fracture. She underwent ORIF to right ankle on 01/21/[address] Main and is nonweightbearing to right lower extremity. Her left ankle fracture is nonoperative, currently has a splint in place and she is weightbearing as tolerated. She tolerated the procedure well and will require rehab for further assistance with mobility. She will be nonweightbearing on the RLE. At least 4 to 6 weeks and will require orthopedic follow-up. Per orthopedics she will require Lovenox for DVT prophylaxis. Her vitamin D level was within normal limits and per orthopedics she will need bone health work-up as an outpatient. Her chronic medical conditions remained stable. Her A1c was 6.4, metformin was held and was placed on correctional scale insulin while inpatient. She is passing flatus but has not had a BM yet. She previously had been on colace 100mg bid. Today she is being switched to Senna S twice daily. She will need to co ntinue bowel regimen and may need additional agents to assist with bowel habits. DVT ppx: Lovenox Dispo: [facility], awaiting auth, [facility] can accept if denied PCP: Chris A total of 40 minutes was spent with greater than 50% of that time personally viewing all current laboratory work and diagnostic imaging studies obtained in the ED. Additionally, I was able to view the patients past medication reconciliation and history with direct visualization in the patients chart. Included in the time above, a portion of that time was spent assessing the patient while discussing and collaborating with specialists, if necessary, and making medical decision making on treatment plan. All of the above was collaborated with Dr. Ordoñez. Please see addendum for further details. Admission and Anticipated Discharge Date Admission Date: January 20, 2023 Supervising Physician Co-Signing Physician Notes Patient seen and examined independently. Discussed with above provider. Continue PT OT; patient will need rehab before going home. Pain control DVT prophylaxis with Lovenox Subjective Patient was seen and examined in room 303. Follow-up bilateral ankle fractures. Overall feels pain is mostly controlled. She has been working with physical therapy and took 3 steps yesterday and this, "wiped her out." She is passing gas and denies abdominal pain but has not had a bowel movement since her fractures. She states at home she takes 5 different stool softeners. She denies fever, chills, sweats, lightheadedness, dizziness, chest pain, shortness breath, nausea, vomiting, abdominal pain. Review of Systems Review of Systems: All systems reviewed & are unremarkable except as noted in HPI & below Physical Exam Physical Exam: Gen: WD/WN,F, lying in bed, NAD, A&O x3 HEENT: Normocephalic, atraumatic, conjunctivae moist, sclerae anicteric, mucous membranes moist. Lung: Clear to Auscultation bilaterally, no wheezes/rales/rhonchi Heart: Regular rate, regular rhythm, no murmurs, rubs, or gallops Abdomen: Soft, NT, ND +BS x 4 Extremities: LLE ankle splint in place, RLE ankle cast in place, NVI distally Skin: Warm, no rash, negative turgor. Results & Data Results & Data Vital Signs (Past 12 Hours) Vital Signs Temp Pulse Resp BP Pulse Ox O2 Del Method 01/23/23 07:10 37 C 54 L 16 111/73 95 Room Air Medications Administered Current Inpatient Medications Acetaminophen (Acetaminophen 325 Mg Tab) 650 mg PO TID [facility] Stop: 02/19/23 13:59 Last Admin: 01/23/23 07:27 Dose: 650 mg Allopurinol (Allopurinol 100 Mg Tab) 100 mg PO BID [facility] Stop: 02/19/23 20:59 Last Admin: 01/23/23 07:28 Dose: 100 mg Aspirin (Aspirin 81 Mg Ectab) 81 mg PO QAM [facility] Stop: 02/21/23 08:59 Last Admin: 01/23/23 07:28 Dose: 81 mg Atorvastatin Calcium (Atorvastatin 40 Mg Tab) 80 mg PO QAM [facility] Stop: 02/20/23 08:59 Last Admin: 01/23/23 07:28 Dose: 80 mg Dextrose (Dextrose 50% 50 Ml Syringe) 25 - 50 ml IV UD PRN; Protocol PRN Reason: Hypoglycemia Protocol Stop: 02/19/23 13:49 Enoxaparin Sodium (Enoxaparin Inj 30 Mg/0.3 Ml Syr) 30 mg SQ Q12H [facility] Stop: 02/20/23 21:59 Last Admin: 01/23/23 09:19 Dose: 30 mg Glucagon (Glucagon For Inj 1 Mg Vial) 1 mg SQ UD PRN; Protocol PRN Reason: Hypoglycemia Protocol Stop: 02/19/23 13:49 Glucose (Glucose 10 Tab/Tube) 4 - 8 tab PO UD PRN; Protocol PRN Reason: Hypoglycemia Treatment Stop: 02/19/23 13:49 Glucose (Glucose 40% Gel 15 Gm Tube) 15 - 30 gm PO UD PRN; Protocol PRN Reason: Hypoglycemia Protocol Stop: 02/19/23 13:49 Hydromorphone HCl (Hydromorphone Inj 0.5 Mg/0.5 Ml Syr) 0.25 mg IV Q4H PRN PRN Reason: SEVERE PAIN (6-10) Stop: 02/04/23 11:49 Insulin Aspart (Insulin Aspart Per Unit Charge) 0 units SC ACHS [facility] Stop: 02/19/23 16:29 Last Admin: 01/23/23 08:09 Dose: 2 units Levothyroxine Sodium (Levothyroxine Sodium 50 Mcg Tablet) 50 mcg PO DAILYBB [facility] Stop: 02/20/23 06:29 Last Admin: 01/23/23 05:57 Dose: 50 mcg Lisinopril (Lisinopril 5 Mg Tab) 5 mg PO QAM [facility] Stop: 02/20/23 08:59 Last Admin: 01/23/23 07:30 Dose: 5 mg Miscellaneous (Carbohydrates For Hypoglycemia ) 15 - 30 gm PO UD PRN PRN Reason: Hypoglycemia Protocol Stop: 02/19/23 13:49 Ondansetron HCl (Ondansetron Inj 2 Mg/Ml 2 Ml Vial) 4 mg IV Q6H PRN PRN Reason: Nausea/Vomiting Stop: 02/19/23 13:49 Oxycodone HCl (Oxycodone Hcl Ir 5 Mg Tab (Immediate Release)) 5 mg PO 6XD PRN; Protocol PRN Reason: Pain (6-10) Stop: 02/04/23 11:17 Last Admin: 01/23/23 03:36 Dose: 5 mg Senna/Docusate Sodium (Docusate Sodium/Senna 50/8.6mg Tab) 1 tab PO BID [facility] Stop: 02/22/23 20:59 Sertraline HCl (Sertraline Hcl 100 Mg Tablet) [facility] [place] Stop: 02/20/23 08:59 Last Admin: 01/23/23 07:30 Dose: 100 mg Tramadol HCl (Tramadol Hcl 50 Mg Tablet) 50 - 100 mg PO Q6H PRN; Protocol PRN Reason: Pain Stop: 02/20/23 11:08 Last Admin: 01/23/23 09:18 Dose: 100 mg Vitamin D (Cholecalciferol 1,000 Units 25 Mcg Tab) 2,000 units PO [facility] Stop: 02/20/23 08:59 Last Admin: 01/23/23 07:29 Dose: 2,000 units
[2023-01-23] MEDS: DOCUSATE SODIUM/SENNA 50/8.6MG TAB PO SCH (20:58)
[2023-01-24] MEDS: LEVOTHYROXINE SODIUM 50 MCG TABLET PO SCH (06:07)
[2023-01-24] MEDS: traMADol HCL 50 MG TABLET PO PRN ×2 (06:09→12:38)
[2023-01-24 06:13] LABS: Basophils # (auto) 0.03 K/uL (0-0.2); Basophils % (auto) 0.5 %; Eosinophils # (auto) 0.19 K/uL (0-0.50); Eosinophils % (auto) 3.1 %; Hematocrit (blood only) 30.7 % (37.0-47.0); Hemoglobin 10.2 g/dl (12.0-16.0); Immature Granulocytes # (auto) 0.02 K/uL (0.01-0.20); Immature Granulocytes % (auto) 0.3 %; Lymphocytes # (auto) 2.94 K/uL (1.2-3.4); Lymphocytes % (auto) 48.7 %; Mean Corpuscular Hemoglobin 30.2 pg (25.0-34.0); Mean Corpuscular Hgb Conc 33.2 g/dL (32.0-36.0); Mean Corpuscular Volume 90.8 fL (80.0-100.0); Mean Platelet Volume 8.6 fL (9.4-12.4); Monocytes # (auto) 0.45 K/uL (0.11-0.59); Monocytes % (auto) 7.5 %; Neutrophils # (auto) 2.41 K/uL (1.40-6.50); Neutrophils % (auto) 39.9 %; Platelet Count 187 K/uL (130-400); RDW Coefficient of Variation 14.6 % (11.5-14.5); RDW Standard Deviation 48.7 fL (36.4-46.3); Red Blood Count 3.38 M/uL (4.20-5.40); White Blood Count 6.04 K/ul (4.8-10.8)
[2023-01-24 06:23] LABS: BUN Creatinine Ratio 24.6 (10-20); Calcium 9.2 mg/dl (8.6-10.3); Est GFR (African American) 53.8 ml/min; Est GFR (Non-African American) 46.5 ml/min; Potassium 4.3 mmol/L (3.5-5.1)
[2023-01-24] MEDS: DOCUSATE SODIUM/SENNA 50/8.6MG TAB PO SCH (07:29)
[2023-01-24] MEDS: ACETAMINOPHEN 325 MG TAB PO SCH (07:30)
[2023-01-24] MEDS: lisinopril 5 MG TAB PO SCH (07:30)
[2023-01-24] MEDS: ASPIRIN 81 MG ECTAB PO SCH (07:30)
[2023-01-24] MEDS: SERTRALINE HCL 100 MG TABLET PO SCH (07:30)
[2023-01-24] MEDS: CHOLECALCIFEROL 1,000 UNITS 25 MCG TAB PO SCH (07:30)
[2023-01-24] MEDS: allopurinoL 100 MG TAB PO SCH (07:30)
[2023-01-24] MEDS: ATORVASTATIN 40 MG TAB PO SCH (07:31)
[2023-01-24] MEDS: INSULIN ASPART PER UNIT CHARGE SC SCH ×2 (08:27→12:26)
[2023-01-24] MEDS: ENOXAPARIN INJ 30 MG/0.3 ML SYR SQ SCH (10:04)
[2023-01-24] MEDS ORDERED: SODIUM CHLORIDE 0.9% 1000ML 500 ML IV ONE (10:12)
--- NOTE | 2023-01-24 10:37 | Orthopedic Progress Note ---
Date of Service January 24, 2023 Assessment & Plan (1) Closed trimalleolar fracture of right ankle: Plan: Pt is POD#3 right ankle ORIF. Patient is doing as well as anticipated. Continue with nonweightbearing on the right LE , May do full weightbearing on the left LE using aircast splint May remove the splint on the LLE to groom and at night for comfort she was encouraged on removing this for daily range of motion of that ankle.. Continue with Lovenox 30mg BIDfor DVT prophylaxis She can continue with using ice over splint on the right ankle as well as utilizing ice on the left ankle as needed with a towel layer x15 to 20 minutes as needed. At this time she was denied by [facility] Case management is working on placement I also discussed with her she would benefit from knee walker to assist with mobility since she is unable to place weight on the right lower extremity. I did provide a prescription and placed in her chart She is scheduled for a follow-up in our office on 01/30 at 1 PM We will continue to monitor patient in regards to dizziness this is most likely from her holding her breath when she is upright doing activities. She denies any chest pain or shortness of breath when this occurs or with deep inspiration.. Present on Admission?: Yes (2) Closed left fibular fracture: Plan: see above. May WBAT with airsplint cast. Admission and Anticipated Discharge Date Admission Date: January 20, 2023 Subjective Patient is a 67-year-old female who is seen at bedside this morning with PT present. She is status post a right ankle ORIF on 01/21 and a left distal fibula Apple A fracture. She is postop day# 3. She states she is a little depressed today. She feels she should be doing better than what she is. She states she gets plate out after doing therapy. She states she has mild pain that is 4/10 in the right ankle. She states she has no numbness or tingling in her foot at this time. She reports the splint is comfortable. She denies any calf pain, chest pain, shortness of breath. she did report some dizziness initially when she was done doing therapy. She states she has a tendency of holding her breath. The therapist reported she had 1 episode yesterday when she was up. He reports her blood pressure was normal and the dizziness resolved and did not occur again when she was upright or during therapy yesterday. Review of Systems Review of Systems: Please refer to HPI Physical Exam Physical Exam: General: Pt is alert and oriented x3 pleasant and conversive. Musculoskeletal: skin is normal in color and normal in temperature on the right. Splint is in place negative for any skin irritation most proximally or distally. She is able to move toes without restriction capillary refill is < 2seconds. She is able to lift the right leg off the bed. Aircast is in place on the left lower extremity. She has Tubigrip in place as well. Limited mobility with the left ankle Aircast on. This was removed on the left lower extremity and she is able to move the ankle.She is able to actively DF and PF ankle strength is intact over the LLE. DP 2+. She was able to stand utilizing a walker with therapist assistance. She was able to take a few steps however she was holding her breath and she felt dizzy. She was able to sit on the edge of the bed and this resolved. Results & Data Vital Signs (Past 12 Hours) Vital Signs Temp Pulse Resp BP BP Pulse Ox O2 Del Method 01/24/23 10:04 117/78 01/24/23 07:42 36.9 C 55 L 14 110/71 95 Room Air Laboratory Results 01/24/23 01/24/23 01/24/23 Range/Units Unknown 07:57 05:44 WBC (4.8-10.8) K/ul RBC (4.20-5.40) M/uL Hgb (12.0-16.0) g/dl Hct (37.0-47.0) % MCV (80.0-100.0) fL MCH (25.0-34.0) pg MCHC (32.0-36.0) g/dL RDW Std Deviation (36.4-46.3) fL RDW Coeff of Pamela (11.5-14.5) % Plt Count (130-400) K/uL MPV (9.4-12.4) fL Immature Gran % (Auto) % Neut % (Auto) % Lymph % (Auto) % [place] % (Auto) % Eos % (Auto) % Baso % (Auto) % Neut # (Auto) (1.40-6.50) K/uL Lymph # (Auto) (1.2-3.4) K/uL [place] # (Auto) (0.11-0.59) K/uL Eos # (Auto) (0-0.50) K/uL Baso # (Auto) (0-0.2) K/uL Immature Gran # (Auto) (0.01-0.20) K/uL Sodium 140 (136-145) mmol/L Potassium 4.3 (3.5-5.1) mmol/L Chloride 104 (98-107) mmol/L Carbon Dioxide 30 (21-32) mmol/L Anion Gap 6 (3-11) BUN 30 H (6-23) mg/dl Creatinine 1.22 H (0.6-1.2) mg/dl Est Cr Clr Drug Dosing 45.0 ml/min Est GFR ( Amer) 53.8 ml/min Est GFR (Non-Af Amer) 46.5 ml/min BUN/Creatinine Ratio 24.6 H (10-20) Glucose 95 (70-99(Fasting)) mg/dl POC Glucose 103 H (70-99) mg/dl Calcium 9.2 (8.6-10.3) mg/dl SARS-CoV-2, RNA, NAAT NEGATIVE (NEGATIVE) 01/24/23 01/23/23 01/23/23 Range/Units 05:44 20:24 17:13 WBC 6.04 (4.8-10.8) K/ul RBC 3.38 L (4.20-5.40) M/uL Hgb 10.2 L (12.0-16.0) g/dl Hct 30.7 L (37.0-47.0) % MCV 90.8 (80.0-100.0) fL MCH 30.2 (25.0-34.0) pg MCHC 33.2 (32.0-36.0) g/dL RDW Std Deviation 48.7 H (36.4-46.3) fL RDW Coeff of Pamela 14.6 H (11.5-14.5) % Plt Count 187 (130-400) K/uL MPV 8.6 L (9.4-12.4) fL Immature Gran % (Auto) 0.3 % Neut % (Auto) 39.9 % Lymph % (Auto) 48.7 % [place] % (Auto) 7.5 % Eos % (Auto) 3.1 % Baso % (Auto) 0.5 % Neut # (Auto) 2.41 (1.40-6.50) K/uL Lymph # (Auto) 2.94 (1.2-3.4) K/uL [place] # (Auto) 0.45 (0.11-0.59) K/uL Eos # (Auto) 0.19 (0-0.50) K/uL Baso # (Auto) 0.03 (0-0.2) K/uL Immature Gran # (Auto) 0.02 (0.01-0.20) K/uL Sodium (136-145) mmol/L Potassium (3.5-5.1) mmol/L Chloride (98-107) mmol/L Carbon Dioxide (21-32) mmol/L Anion Gap (3-11) BUN (6-23) mg/dl Creatinine (0.6-1.2) mg/dl Est Cr Clr Drug Dosing ml/min Est GFR ( Amer) ml/min Est GFR (Non-Af Amer) ml/min BUN/Creatinine Ratio (10-20) Glucose (70-99(Fasting)) mg/dl POC Glucose 102 H 125 H (70-99) mg/dl Calcium (8.6-10.3) mg/dl SARS-CoV-2, RNA, NAAT (NEGATIVE) 01/23/23 Range/Units 12:17 WBC (4.8-10.8) K/ul RBC (4.20-5.40) M/uL Hgb (12.0-16.0) g/dl Hct (37.0-47.0) % MCV (80.0-100.0) fL MCH (25.0-34.0) pg MCHC (32.0-36.0) g/dL RDW Std Deviation (36.4-46.3) fL RDW Coeff of Pamela (11.5-14.5) % Plt Count (130-400) K/uL MPV (9.4-12.4) fL Immature Gran % (Auto) % Neut % (Auto) % Lymph % (Auto) % [place] % (Auto) % Eos % (Auto) % Baso % (Auto) % Neut # (Auto) (1.40-6.50) K/uL Lymph # (Auto) (1.2-3.4) K/uL [place] # (Auto) (0.11-0.59) K/uL Eos # (Auto) (0-0.50) K/uL Baso # (Auto) (0-0.2) K/uL Immature Gran # (Auto) (0.01-0.20) K/uL Sodium (136-145) mmol/L Potassium (3.5-5.1) mmol/L Chloride (98-107) mmol/L Carbon Dioxide (21-32) mmol/L Anion Gap (3-11) BUN (6-23) mg/dl Creatinine (0.6-1.2) mg/dl Est Cr Clr Drug Dosing ml/min Est GFR ( Amer) ml/min Est GFR (Non-Af Amer) ml/min BUN/Creatinine Ratio (10-20) Glucose (70-99(Fasting)) mg/dl POC Glucose 103 H (70-99) mg/dl Calcium (8.6-10.3) mg/dl SARS-CoV-2, RNA, NAAT (NEGATIVE)
--- NOTE | 2023-01-24 11:05 | Discharge Summary ---
Discharge Summary Date of Service January 24, 2023 Notes For Next Care Provider Hold lisinopril x1 week and resume if blood pressure stable. Blood pressure has been running on the lower side 110-1 20 systolically. She did receive 500 mL of IV fluid NS prior to discharge and is encouraged to increase fluid intake. Patient sustained a trimalleolar right ankle fracture and underwent ORIF 01/[address] Main. L ankle fracture is a gaffney type A and does not require surgery. She has an aircast in place and may bear weight as tolerated. It may be removed for grooming. Pt still have not yet moved bowels but is passing gas, no abdominal pain and tolerating diet. Titrate bowel regimen as needed. Medication Changes From Visit Tramadol 50 -100mg mg every 6 hours as needed for pain. Scheduled Tylenol 650 mg 3 times a day. Lovenox 30 mg subcutaneous injection every 12 hours while nonweightbearing to the right lower extremity. Admission HPI Per Admitting Provider Ms Patrica Obrien is a 67 year old female with history of anxiety, essential tremor, CKD, depression, hypertension, hypothyroidism, non insulin dependent diabetes, gout, hyperlipidemia, migraine headaches, former smoker, presents to the ER with bilateral ankle pain and swelling after a mechanical fall while walking her dogs today. She was found to have bilateral ankle fractures (right-- displaced spiral fracture of distal fibula, mildly displaced tibial fracture, trimalleolar fracture. Left- left fibular fracture). Orthopedic consult placed by ER. Hospitalist service contacted for admission for further management. ER course- Morphine 4mg IV, zofran 4mg IV On a daily basis, she walks her dogs about 4-6 times a day (about 30 minutes twice a day and 10-15 min the other times), daily ADLs (laundry, cleaning) with no shortness of breath or chest pain. Has not taken her medications today. No recent medication changes. Admission Exam Per Admitting Provider Physical Exam Physical Exam: No acute distress, non toxic, appears stated age ENMT: Normocephalic, atraumatic, mucous membrane moist Respiratory: Breathing comfortably on NC, no wheezing/rhonchi/rales Cardiovascular: Regular rate and rhythm, no murmurs/rubs/gallops Gastrointestinal (Abdomen): soft, non tender, non distended Musculoskeletal: bilateral ankle pain and swelling, no bruising noted, skin intact Neurologic: awake, alert, moving extremities Psychiatric: normal affect, speech linear, non pressured Principal Dx & Hospital Course #1 = Principal Diagnosis (1) Acute right ankle pain: (2) Acute left ankle pain: (3) Accidental fall: (4) Vitamin D insufficiency: (5) Migraine headache: (6) Hypercholesterolemia: (7) Depression with anxiety: (8) CKD (chronic kidney disease), stage III: (9) Benign essential hypertension: (10) DM (diabetes mellitus): (11) Gout: Plan This is a 67-year-old female who has a significant past medical history of HTN, HLD, CKD stage III, T2DM and depression with anxiety who presented to ED on 01/20/2023 after sustaining a mechanical fall. She sustained a right trimalleolar fracture with a mildly comminuted lateral malleolus fracture and a nondisplaced medial malleoli fracture. Her left ankle suffered a Gaffney type a fracture. She underwent ORIF to right ankle on 01/21/[address] Main and is nonweightbearing to right lower extremity. Her left ankle fracture is nonoperative, currently has a splint in place and she is weightbearing as tolerated. She tolerated the procedure well and will require rehab for further assistance with mobility. She will be nonweightbearing on the RLE At least 4 to 6 weeks and will require orthopedic follow-up. Per orthopedics she will require Lovenox for DVT prophylaxis. Her vitamin D level was within normal limits and per orthopedics she will need bone health work-up as an outpatient. Her chronic medical conditions remained stable. Her A1c was 6.4, metformin was held and was placed on correctional scale insulin while inpatient. She is passing flatus but has not had a BM yet. She will need to continue bowel regimen and may need additional agents to assist with bowel habits. Blood pressure was on lower side on day of discharge in the 110s systolically. During physical therapy while standing her blood pressure did drop to around 90 systolically and she experienced lightheadedness. She received 500 mL fluid bolus on day of discharge and her lisinopril will be held for 1 week. Recommend close blood pressure monitoring while at rehab. A total of 40 minutes was spent with greater than 50% of that time personally viewing all current laboratory work and diagnostic imaging studies obtained in the ED. Additionally, I was able to view the patients past medication reconciliation and history with direct visualization in the patients chart. Included in the time above, a portion of that time was spent assessing the patient while discussing and collaborating with specialists, if necessary, and making medical decision making on treatment plan. All of the above was collaborated with Dr. Ordoñez. Please see addendum for further details. Discharge Exam Gen: WD/WN,F, lying in bed, NAD, A&O x3 HEENT: Normocephalic, atraumatic, conjunctivae moist, sclerae anicteric, mucous membranes moist. Lung: Clear to Auscultation bilaterally, no wheezes/rales/rhonchi Heart: Regular rate, regular rhythm, no murmurs, rubs, or gallops Abdomen: Soft, NT, ND +BS x 4 Extremities: LLE ankle splint in place, RLE ankle cast in place, NVI distally Skin: Warm, no rash, negative turgor. Updated Medication List Medication Instructions Recorded Confirmed Type aspirin 81 mg tablet,delayed 81 mg PO QAM 07/17/18 01/20/23 History release (Aspir-) blood sugar diagnostic (OneTouch #10 ea 05/17/19 12/03/19 Rx Ultra Blue Test Strip) lancets 30 gauge (OneTouch Delica #25 ea 05/17/19 12/03/19 Rx Lancets) atorvastatin 80 mg tablet (Lipitor) 80 mg PO QAM 07/04/20 01/20/23 History allopurinol 100 mg tablet 100 mg PO BID Gout #180 tabs 11/10/20 01/20/23 Rx (Zyloprim) cholecalciferol (vitamin D3) 50 50 mcg PO QAM 10/18/22 01/20/23 History mcg (2,000 unit) capsule (Vitamin D3) cyanocobalamin (vitamin B-12) 1,000 mcg PO QPM 10/18/22 01/20/23 History 1,000 mcg tablet (Vitamin B-12) docusate sodium 100 mg capsule 200 mg PO HS 10/18/22 01/20/23 History (Stool Softener) docusate sodium 100 mg capsule 300 mg PO QAM 10/18/22 01/20/23 History (Stool Softener) dulaglutide 1.5 mg/0.5 mL 1.5 mg subcut WK 10/18/22 01/20/23 History subcutaneous pen injector (Trulicity) inulin 2 gram chewable tablet 4 g PO QAM 10/18/22 01/20/23 History (Fiber Gummies) levothyroxine 50 mcg tablet 50 mcg PO QAM 10/18/22 01/20/23 History lisinopril 5 mg tablet 5 mg PO QAM 10/18/22 01/20/23 History magnesium oxide 400 mg PO HS 10/18/22 01/20/23 History metformin 1,000 mg tablet 1,000 mg PO BID 10/18/22 01/20/23 History omega-3 fatty acids-vitamin E 1 cap PO QAM 10/18/22 01/20/23 History 1,000 mg capsule riboflavin (vitamin B2) 100 mg 100 mg PO QPM 10/18/22 01/20/23 History tablet (Vitamin B-2) sertraline 100 mg tablet 100 mg PO QAM 10/18/22 01/20/23 History acetaminophen 325 mg tablet 650 mg PO TID 30 days #180 tabs 01/24/23 Rx enoxaparin 30 mg/0.3 mL 30 mg (0.3 mL) subcut Q12H 2 weeks 01/24/23 Rx subcutaneous syringe (Lovenox) #8.4 mL tramadol 50 mg tablet 50 mg PO Q6H PRN pain #30 tabs 01/24/23 Rx Hospital Stay Data Consultations 01/20/23 10:40 ED Decision to Admit Stat 01/20/23 11:50 Consult Orthopedic Surgery Routine Procedures Performed Operation Date: 01/21/23 07:30 Actual Procedures p Right Open Reduction Internal Fixation Ankle(Right) - [place] Main MD Diagnostic Imagining Performed Ankle X-Ray 01/20/23 09:10 XR ankle LT min 3V routine CLINICAL HISTORY: swelling, pain, fall COMPARISON: Left ankle radiographs 01/20/2016. FINDINGS: Lateral ankle soft tissue swelling is noted. Note is made of lucency with cortical irregularity of the fibular tip. This represents an acute minimally displaced fracture 8 mm proximal to the fibular tip. Well-corticated ossicle along the medial malleolus is chronic. There is plantar calcaneal spurring. No ankle mortise widening. IMPRESSION: 1. Acute minimally displaced left fibular tip fracture. 2. Lateral ankle soft tissue swelling. 3. Tibiotalar joint osteophytosis. Well corticated ossicle along the medial malleolus which is chronic. 4. No ankle mortise widening. ACT 112: Negative or not required by law. Electronically signed by: Hitesh Eid M.D. 01/20/2023 10:12 AM Ankle X-Ray 01/20/23 09:10 RIGHT ANKLE 3 VIEWS CLINICAL HISTORY: Fall with right ankle injury. FINDINGS: 3 views of the right ankle are obtained. No prior studies are available for comparison at the time of dictation. The skeletal structures are osteopenic. There is a displaced spiral fracture of the distal fibula. The fragments are offset by up to 4 mm. There is nondisplaced fracture through the medial malleolus, as well as a mildly displaced vertically oriented fracture through the posterior malleolus of the tibia. There is widening of the medial joint space, as well as mild anterior subluxation of the talus at the tibiotalar articulation. There is an ankle joint effusion. Soft tissue edema it is seen around the ankle. There is a plantar heel spur. IMPRESSION: 1. Trimalleolar fracture of the right ankle as above with associated joint effusion and soft tissue edema. 2. There is mild widening of the medial joint space as well as mild anterior subluxation of the talus at the tibiotalar articulation. Electronically signed by: West Gross M.D. 01/20/2023 10:14 AM Ankle X-Ray 01/21/23 00:00 INTRAOPERATIVE RADIOGRAPHS CLINICAL HISTORY: Open reduction and internal fixation of the right ankle. Fluoro time: 48 seconds Ka,r: 0.95 mGy FINDINGS: 5 spot fluoroscopic views of the right ankle are correlated with radiographs dated 01/20/2023. 2 cortical lag screws transfix a medial malleolar fracture. There as been buttress plate fixation along the lateral cortex of the distal fibula transfixing a spiral fracture. Near anatomic alignment is restored at the ankle joint. An additional cortical lag screw transfixes the fibular fracture fragments. Overlying soft tissue edema is noted. The orthopedic hardware appears intact. IMPRESSION: Intraoperative images from open reduction and internal fixation of right ankle fractures as above. Electronically signed by: West Gross M.D. 01/21/2023 10:57 AM Knee X-Ray 01/22/23 08:34 RIGHT KNEE 3 VIEWS CLINICAL HISTORY: Right knee pain. FINDINGS: AP, crosstable lateral, and sunrise views of the right knee are obtained. No prior studies are available for comparison at the time of dictation. The skeletal structures are osteopenic. No fracture is seen. There is minimal degenerative joint space narrowing. No joint effusion is identified. The overlying soft tissues are within normal limits. IMPRESSION: No no acute bony abnormality is identified. Electronically signed by: West Gross M.D. 01/22/2023 9:10 AM Pending Results Patient Have Any Pending Studies at Discharge: No Discharge Instructions Given to Patient (Per Discharging Provider) MEDICATION CHANGES: Tramadol 50 mg every 6 hours as needed for pain. Scheduled Tylenol 650 mg 3 times a day. Lovenox 30 mg subcutaneous injection every 12 hours while nonweightbearing to the right lower extremity. PENDING TEST RESULTS: None RECOMMENDATIONS FOR FOLLOW-UP: Follow-up with orthopedics as scheduled. Recommend follow-up with primary care provider once discharged from rehab. Patient has not had a recent bowel movement. She has passing gas. Encourage increased fluid intake and bowel regimen. Recommend holding lisinopril 5 mg daily x 1 week and monitor blood pressure closely. Blood pressure has been running on the low normal side. Recommend resuming lisinopril in 1 week if blood pressure stable. Follow orthopedic instructions at discharge. OTHER INSTRUCTIONS: Seek medical attention if you have: * temperature above 101 * chest pain or trouble breathing * abdominal pain, nausea, vomiting * diarrhea, dark stools or bloody stools * any unanswered questions or concerns Call 911 if symptoms are severe. Please take good care of yourself. It has been a pleasure taking care of you. Please take care of yourself. If you have any questions regarding your recent hospitalization please contact [facility] and request Elina Rodgers @ [phone]. Total Time Total Time Spent Total Time Spent (In Minutes): 40 minutes Supervising Physician Co-Signing Physician Notes Patient seen and examined independently. Discussed with above provider. Patient to be discharged to rehab. Lovenox ordered for DVT prophylaxis. Patient to continue PT OT at rehab. Patient to follow-up with primary care doctor after discharge from rehab.
== END 2023-01-24 13:29 | DRG 494 ==
LOC: ED 08:52 → SUATTDRO 12:03 → EDINP 12:03 → 3E 16:16